=== PATIENT | female | born 1965 | race African-American/Black ===

== ENCOUNTER 2017-02-11 09:23 | Inpatient (IN) | payer MEDICARE ==
--- NOTE | ~2017-02-11 | US77 ---
[facility] A Service of [facility] RADIOLOGY TEXT RESULTS PATIENT: BEATRIZ OCASIO LOCATION: [address] : [birth year] UNIT #: [id number] AGE: [address]: Maximino Bernal MD SEX: F ORDER DR: [id number] [facility] [address] [facility]. [place], [place] [address] [id number] I MR#: [id number] Acc #: [id number] NAME: BEATRIZ OCASIO. : 1965 SEX: F STUDY DATE/TIME: 02/11/2017 18:56 UNIT: [facility] ROOM: [facility] STUDY DESCRIPTION: US Kidney Bilateral Complete Attending Physician: Jovany Carver M.D. Referring Physician: Ivan Whitehead M.D. Ordering Physician: Ed Jackson Foster M.D. Primary Care Physician: Peggy Canela M.D. MEDICAL IMAGING REPORT This report is preliminary unless electronic signature is present EXAM Renal ultrasound bilateral, 02/11/17. HISTORY Acute renal insufficiency beginning today. Abnormal renal function tests. Elevated BUN of 87, elevated creatinine of 8.5. Abnormally low GFR of 5.8 today on admission. FINDINGS The right kidney measures 10.6 cm while the left kidney measures 11.4 cm in longitudinal dimensions. There is no evidence of hydronephrosis or nephrolithiasis. There is a 3.6 cm cyst on the right kidney. No solid mass lesions are identified. There is normal renal cortical echogenicity. The bladder was empty for the exam due to the presence of a De Guzman catheter and therefore poorly visualized. IMPRESSION 1. Right renal cyst. Otherwise, negative renal ultrasound. 2. The bladder was empty for the examination and therefore poorly visualized. Dictated by... Zhou Quinonez M.D. THIS IS AN ELECTRONICALLY VERIFIED REPORT Zhou Quinonez M.D. at 02/14/2017 8:26 AM STACI/ondina TD: 02/11/2017 23:42 JOB #: [id number] MEDICAL IMAGING REPORT [facility] A Service of [facility] RADIOLOGY TEXT RESULTS PATIENT: BEATRIZ OCASIO LOCATION: [address] : [birth year] UNIT #: [id number] AGE: [address]: Maximino Bernal MD SEX: F ORDER DR: Page 1 of 1 COPY
--- NOTE | ~2017-02-11 | CR7 ---
[facility] A Service of [facility] & [facility] RADIOLOGY TEXT RESULTS PATIENT: BEATRIZ OCASIO LOCATION: [address] : [birth year] UNIT #: [id number] AGE: [address]: Maximino Bernal MD SEX: F ORDER DR: [id number] [facility] [address] [facility]. [place], [place] [address] [id number] I MR#: [id number] Acc #: [id number] NAME: BEATRIZ OCASIO : 1965 SEX: F STUDY DATE/TIME: 02/12/2017 23:51 UNIT: [facility] ROOM: [facility] STUDY DESCRIPTION: CR Abdomen Single AP View Attending Physician: Maximino Bernal M.D. Ordering Physician: Maximino Bernal M.D. Primary Care Physician: Peggy Canela M.D. MEDICAL IMAGING REPORT This report is preliminary unless electronic signature is present EXAM Abdomen, 02/12 at 23:51. INDICATION Feeding tube placement. FINDINGS A view of the chest and upper abdomen was obtained. The tip of the feeding tube appears to be in the upper thoracic esophagus. ET tube mid trachea. Remaining tubes and lines are stable. Bilateral infiltrates are again seen. No pneumothorax. IMPRESSION Feeding tube appears to be in the upper thoracic esophagus. It is not in the stomach and should not be used in its current position. STAT * RESULT Dictated by... Sukhi Field Jr., M.D. THIS IS AN ELECTRONICALLY VERIFIED REPORT Sukhi Field Jr., M.D. at 02/13/2017 3:16 AM DONALDO/ondina TD: 02/13/2017 00:23 JOB #: [id number] MEDICAL IMAGING REPORT Page 1 of 1 COPY
--- NOTE | ~2017-02-11 | HP ---
Unit #: [id number] #: [id number] Patient: BEATRIZ OCASIO [id number] [address] [address] [id number] E MR#: [id number] NAME: BEATRIZ OCASIO ROOM: Age: 51 Sex: F Admission Date: 02/11/2017 : 1965 Attending Physician: Emily Hernández M.D. Primary Care Physician: Peggy Canela M.D. HISTORY AND PHYSICAL CHIEF COMPLAINT Shortness of breath. HISTORY OF PRESENT ILLNESS The patient is a 51-year-old female with a history of hypertension, depression, obstructive sleep apnea, and was found unresponsive early this morning. The patient uses a CPAP machine at night. The patient was found to be unresponsive with a vomitus in the CPAP machine by the patient's kids early this morning. The patient was brought to the emergency room. The patient was found to be in respiratory distress and is intubated for the acute respiratory failure. The patient is status post intubation and sedation and no further history is available. No history of fever, chills, nausea, vomiting. PAST MEDICAL HISTORY 1. History of major depression. Recurrent, moderate. 2. Dysthymic disorder. 3. Opioid dependence. 4. Psychological factor affecting physical illness. 5. Obesity. 6. Hypertension. 7. Gastroesophageal reflux disease. 8. Hypothyroidism. 9. Chronic pain with degenerative disk disease. 10. Obstructive sleep apnea. PAST SURGICAL HISTORY 1. History of bypass surgery. 2. Ablation. 3. Five back tumors removed. SOCIAL HISTORY No history of smoking cigarettes, alcohol or illicit drug abuse. FAMILY HISTORY Unavailable. HOME MEDICATIONS 1. The patient is on Cymbalta. 2. Prilosec. 3. Fetzima. 4. Wellbutrin. 5. Tramadol. 6. Zanaflex. Unit #: [id number] #: [id number] Patient: BEATRIZ OCASIO 7. Norvasc. 8. Amitiza. 9. Gabapentin. 10. MS Contin. 11. Tenormin. 12. ProAir. 13. Premarin. 14. Synthroid. REVIEW OF SYSTEMS Unable to obtain. PHYSICAL EXAMINATION GENERAL: The patient is lying on the bed, status post intubation. VITALS: Temperature 99.6, pulse 104, respiratory rate 28, blood pressure 108/88, saturating 94% on 50% vent. HEENT: Head atraumatic, normocephalic. Pupils equal, round and reactive to light and accommodation. Extraocular movements are intact. Status post orotracheal intubation. LUNGS: Coarse breath sounds and diffuse bilateral rhonchi. HEART: Regular rate and rhythm. ABDOMEN: Soft. EXTREMITIES: No cyanosis or clubbing. NEUROLOGIC: Status post intubation and sedation. DIAGNOSTIC STUDIES IMAGING: Chest x-ray shows low lung volumes with prominence of the cardiac silhouette and diffuse bilateral airspace changes. The findings favor the presence of edema over diffuse bilateral pneumonia. No definite effusion or pneumothorax. LABORATORY: Troponin less than 0.05, white blood cell count 4, hemoglobin 11.5, hematocrit 36.8, platelets 343. Lactic acid 1.8, sodium 137, potassium 5.2, glucose 69, BUN 82, creatinine 7.7, calcium 7.6, AST 33, ALT 35, urine drug screen positive for opiates. BNP 228. INR 1. Urinalysis shows 2+ leukocyte esterase, 3+ urine bacteria. Troponin less than 0.05. ABG shows 7.2, pCO2 29.3, pO2 87.8, bicarb 11.6, oxygen saturation 94.7. ASSESSMENT 1. Acute respiratory failure. 2. Acute kidney injury. 3. Hyperkalemia. 4. Sepsis. PLAN Admit the patient to inpatient ICU. Continue with IV fluids per protocol. Antibiotics with Zosyn. Continue with vent management for critical care. Renal consult for hyperkalemia and acute kidney injury. Further recommendations will follow. Dictated by Kenisha Tellez Unit #: [id number] #: [id number] Patient: BEATRIZ OCASIO TD: 02/11/2017 16:16 JOB #: [id number] HISTORY AND PHYSICAL Page 1 of 1 X MANUEL PETIT MD X HISTORY AND PHYSICAL
--- NOTE | ~2017-02-11 | EKG ---
PATIENT: BEATRIZ OCASIO UNIT #: [id number] Ventricular Rate: 110 BPM Atrial Rate: 110 BPM P-R Interval: 168 ms QRS Duration: 80 ms Q-T Interval: 330 ms QTC Calculation(Bezet): 446 ms P [place]: 44 degrees Calculated R [place]: 39 degrees Calculated T [place]: 23 degrees Diagnosis Line: Sinus tachycardia Diagnosis Line: Poor R wave progression questionable lead position Diagnosis Line: or body habitus Diagnosis Line: Borderline ECG Diagnosis Line: When compared with ECG of 11-FEB-2017 09:54, Diagnosis Line: No significant change was found Diagnosis Line: Confirmed by DEVIKA COSTA MD ([id number]) on Diagnosis Line: 02/23/2017 11:04:43 AM INTERPRETING AAKASH SANDOVAL
--- NOTE | ~2017-02-11 | EKG ---
PATIENT: BEATRIZ OCASIO UNIT #: [id number] Ventricular Rate: 80 BPM Atrial Rate: 80 BPM P-R Interval: 160 ms QRS Duration: 80 ms Q-T Interval: 390 ms QTC Calculation(Bezet): 449 ms P [place]: 56 degrees Calculated R [place]: 78 degrees Calculated T [place]: 50 degrees Diagnosis Line: Normal sinus rhythm Diagnosis Line: Normal ECG Diagnosis Line: When compared with ECG of 22-FEB-2017 22:38, Diagnosis Line: No significant change was found Diagnosis Line: Confirmed by VLADIMIR LYNCH MD ([id number]) on 02/24/2017 Diagnosis Line: 8:37:33 PM INTERPRETING MD: CRIS GRAVES
--- NOTE | ~2017-02-11 | CR72 ---
[facility] A Service of [facility] & [facility] RADIOLOGY TEXT RESULTS PATIENT: BEATRIZ OCASIO LOCATION: [place] [address] : [birth year] UNIT #: [id number] AGE: [address]: Rosalia Green MD SEX: F ORDER DR: [id number] [facility] [address] [facility]. [place], [place] [address] [id number] I MR#: [id number] Acc #: [id number] NAME: BEATRIZ OCASIO : 1965 SEX: F STUDY DATE/TIME: 02/18/2017 10:38 UNIT: [facility] ROOM: [facility] STUDY DESCRIPTION: CR Chest Single View Portable Attending Physician: Maximino Bernal M.D. Ordering Physician: Samuel Peterson M.D. Primary Care Physician: Peggy Canela M.D. MEDICAL IMAGING REPORT This report is preliminary unless electronic signature is present EXAM Single view chest INDICATION Chest pain, shortness of air, and wheezing. FINDINGS Single portable AP view of the chest compared to 02/18/2017. The endotracheal tube has been removed. There is an enteric tube, right IJ central line and left IJ central line. Bilateral airspace opacities are similar to the prior study. No pneumothorax. IMPRESSION No change in bilateral airspace opacities. Dictated by... Berto Joseph M.D. THIS IS AN ELECTRONICALLY VERIFIED REPORT Berto Joseph M.D. at 02/21/2017 3:01 PM GARCÍA/juan manuel TD: 02/18/2017 23:35 JOB #: [id number] MEDICAL IMAGING REPORT Page 1 of 1 COPY
--- NOTE | ~2017-02-11 | CT57 ---
[facility] A Service of [facility] RADIOLOGY TEXT RESULTS PATIENT: BEATRIZ OCASIO LOCATION: [facility] 46- : [birth year] UNIT #: [id number] AGE: [address]: Rosalia Green MD SEX: F ORDER DR: [id number] [facility] [address] [facility]. [place], [place] [address] [id number] I MR#: [id number] Acc #: [id number] NAME: BEATRIZ OCASIO. : 1965 SEX: F STUDY DATE/TIME: 02/23/2017 18:36 UNIT: [facility] ROOM: [facility] STUDY DESCRIPTION: CT Chest Wo Cont Attending Physician: Rosalia Green M.D. Ordering Physician: Samuel Peterson M.D. Primary Care Physician: Peggy Canela M.D. MEDICAL IMAGING REPORT This report is preliminary unless electronic signature is present EXAM CT chest without contrast DATE 02/23/2017 HISTORY 51-year-old female, shortness of breath since 02/11/2017. Previously on the ventilator. Respiratory failure, cough, wheezing. Hypertension. COMPARISON PA and lateral chest radiograph 02/23/2017 at 09:14. No CT chest at this institution for comparison. PROCEDURE 5 mm noncontrast axial images through the chest. Sagittal and coronal reformatted images were obtained. This CT exam was performed with one or more of the following radiation dose reduction techniques: Automatic exposure control, adjustment of mA and/or kV according to patient size, and iterative reconstruction. FINDINGS Small right pleural effusion is present, layering to a depth of 2.4 cm. Abnormal interstitial thickening and ground-glass opacities are demonstrated within bilateral upper lobes, right greater than left, and within the right middle lobe. More dense atelectasis or infiltrate is present within the posterior right lower lobe. Mildly prominent prevascular node measuring 1 cm in short axis, nonspecific, favored to represent reactive finding. Right IJ central line extends to the [id number] SVC. No visible pneumothorax. Surgical changes of the stomach. There is an air-fluid collection within the right of midline, upper to mid STS. [facility] A Service of [facility] RADIOLOGY TEXT RESULTS PATIENT: BEATRIZ OCASIO LOCATION: [place] [address]- : [birth year] UNIT #: [id number] AGE: [address]: Rosalia Green MD SEX: F ORDER DR: abdominal wall, incompletely imaged, measuring about 7.1 cm transversely by 2 cm thickness. IMPRESSION 1. Interstitial and alveolar infiltrates are present within both lungs, with more dense consolidative change within the right lower lobe. Findings may represent changes of pneumonia given the appropriate clinical context. There is a small right pleural effusion. 2. There is an incompletely imaged air-fluid collection within the upper abdomen, to the right of midline, measuring about 7.1 x 2 cm. Correlate with clinical exam and known history. If further evaluation is desired, dedicated CT abdomen and pelvis could be performed. 3. Surgical changes of the stomach. Dictated by... Aleshia Vieyra M.D. THIS IS AN ELECTRONICALLY VERIFIED REPORT Aleshia Vieyra M.D. at 02/24/2017 10:03 AM FABIO/sugar TD: 02/23/2017 22:44 JOB #: [id number] MEDICAL IMAGING REPORT Page 1 of 1 COPY
--- NOTE | ~2017-02-11 | CR63 ---
[facility] A Service of [facility] RADIOLOGY TEXT RESULTS PATIENT: BEATRIZ OCASIO LOCATION: [place] [address] : [birth year] UNIT #: [id number] AGE: [address]: Rosalia Green MD SEX: F ORDER DR: [id number] [facility] [address] [facility]. [place], [place] [address] [id number] I MR#: [id number] Acc #: [id number] NAME: BEATRIZ OCASIO. : 1965 SEX: F STUDY DATE/TIME: 02/23/2017 9:14 UNIT: [facility] ROOM: [facility] STUDY DESCRIPTION: CR Chest 2 View Attending Physician: Rosalia Green M.D. Ordering Physician: Samuel Peterson M.D. Primary Care Physician: Peggy Canela M.D. MEDICAL IMAGING REPORT This report is preliminary unless electronic signature is present EXAM Chest, 02/23/2017 HISTORY 51-year-old woman, short of air. History of aspiration pneumonia. Symptoms x 12 days. COMPARISON Most recent portable chest, 02/20/2017 FINDINGS Two-view chest demonstrates borderline cardiac enlargement and mild aortic prominence. There is vascular congestion with cephalization of pulmonary venous distribution. Patient has developed a moderate right pleural effusion with preexisting elevation of the right hemidiaphragm. Right lung infiltrates appear to be improved slightly. Left approach Shiley and right approach central line remain well positioned. IMPRESSION There appears to be some clearing of right lung infiltrate with interim development of significant right pleural effusion. This could be cardiac in origin although the heart size is stable. Clinical correlation recommended. Dictated by... Federico Guajardo M.D. THIS IS AN ELECTRONICALLY VERIFIED REPORT Federico Guajardo M.D. at 02/23/2017 1:03 PM Ehsan TD: 02/23/2017 11:25 JOB #: [id number] [facility] A Service of [facility] RADIOLOGY TEXT RESULTS PATIENT: BEATRIZ OCASIO [id number] : [birth year] UNIT #: [id number] AGE: [address]: Rosalia Green MD SEX: F ORDER DR: MEDICAL IMAGING REPORT Page 1 of 1 COPY
--- NOTE | ~2017-02-11 | CR72 ---
[facility] A Service [facility] RADIOLOGY TEXT RESULTS PATIENT: BEATRIZ OCASIO LOCATION: [address] : [birth year] UNIT #: [id number] AGE: [address]: Maximino Bernal MD SEX: F ORDER DR: [id number] [place] [id number] [place], [place] [address] [id number] I MR#: [id number] Acc #: [id number] NAME: BEATRIZ OCASIO. : 1965 SEX: F STUDY DATE/TIME: 02/16/2017 5:27 UNIT: [facility] ROOM: [facility] STUDY DESCRIPTION: CR Chest Single View Portable Attending Physician: Maximino Bernal M.D. Ordering Physician: Samuel Peterson M.D. Primary Care Physician: Peggy Canela M.D. MEDICAL IMAGING REPORT This report is preliminary unless electronic signature is present EXAM Portable chest, 02/16. COMPARISON 02/15 HISTORY Respiratory distress, respiratory failure, shortness of breath. Ventilator management. COMPARISON An AP view is obtained. FINDINGS The patient remains intubated. ET tube above chelle. Nasoenteric tube is in the stomach. Right-sided IJ line tip terminates in the SVC. Bilateral pulmonary parenchymal infiltrates are present and have not changed significantly. CONCLUSION No interim change. Dictated by... Marcio Gale M.D. THIS IS AN ELECTRONICALLY VERIFIED REPORT Marcio Gale M.D. at 02/17/2017 3:21 PM BARB/zoë TD: 02/16/2017 10:23 JOB #: [id number] [facility] A [facility] RADIOLOGY TEXT RESULTS PATIENT: BEATRIZ OCASIO LOCATION: [address] : [birth year] UNIT #: [id number] AGE: [address]: Maximino Bernal MD SEX: F ORDER DR: MEDICAL IMAGING REPORT Page 1 of 1 COPY
--- NOTE | ~2017-02-11 | CR72 ---
[facility] A Service of [facility] RADIOLOGY TEXT RESULTS PATIENT: BEATRIZ OCASIO LOCATION: [place] : [birth year] UNIT #: [id number] AGE: [address]: Emily Hernández MD SEX: F ORDER DR: [id number] [facility] [address] [facility]. [place], [place] [address] [id number] E MR#: [id number] Acc #: [id number] NAME: BEATRIZ OCASIO : 1965 SEX: F STUDY DATE/TIME: 02/11/2017 12:39 UNIT: [place] ROOM: STUDY DESCRIPTION: CR Chest Single View Portable Attending Physician: Emily Hernández M.D. Ordering Physician: Ed Jackson Foster M.D. Primary Care Physician: Peggy Canela M.D. MEDICAL IMAGING REPORT This report is preliminary unless electronic signature is present EXAM Chest, portable, 02/11/2017, 1239 hours. CLINICAL HISTORY Respiratory distress today, new intubation. COMPARISON 02/11/2017, 1201 hours. FINDINGS Single, portable, upright view demonstrates a new endotracheal tube with tip terminating 3.5 cm above the chelle. Right IJ catheter tip remains in the mid SVC. Bilateral airspace changes persist. There is no pneumothorax. IMPRESSION New endotracheal tube tip terminates 3.5 cm above the chelle. Right IJ catheter tip in the mid SVC. Stable bilateral airspace changes. No pneumothorax. Dictated by... Beatriz Cook M.D. THIS IS AN ELECTRONICALLY VERIFIED REPORT Beatriz Cook M.D. at 02/11/2017 4:01 PM MYESHA/zoë TD: 02/11/2017 15:23 JOB #: [id number] MEDICAL IMAGING REPORT [facility] A Service [facility] RADIOLOGY TEXT RESULTS PATIENT: BEATRIZ OCASIO LOCATION: [place] : [birth year] UNIT #: [id number] AGE: [address]: Emily Hernández MD SEX: F ORDER DR: Page 1 of 1 COPY
--- NOTE | ~2017-02-11 | CR7 ---
[facility] A Service of [facility] & [facility] RADIOLOGY TEXT RESULTS PATIENT: BEATRIZ OCASIO LOCATION: [place] [address] : [birth year] UNIT #: [id number] AGE: [address]: Maximino Bernal MD SEX: F ORDER DR: [id number] [facility] [address] [facility]. [place], [place] [address] [id number] I MR#: [id number] Acc #: [id number] NAME: BEATRIZ OCASIO. : 1965 SEX: F STUDY DATE/TIME: 02/13/2017 7:51 UNIT: [facility] ROOM: [facility] STUDY DESCRIPTION: CR Abdomen Single AP View Attending Physician: Maximino Bernal M.D. Ordering Physician: Maximino Bernal M.D. Primary Care Physician: Peggy Caneal M.D. MEDICAL IMAGING REPORT This report is preliminary unless electronic signature is present EXAM AP view of the abdomen COMPARISON February 12, 2017. INDICATIONS 51-year-old female, tube placement today. FINDINGS/IMPRESSION Internal jugular catheter tip again noted to terminate near the cavoatrial junction, possibly in the high right atrium. Feeding tube has been advanced with the tip below the diaphragm, likely within the gastric body. There appears to be slight increased gaseous distension of small bowel and colon in the visualized abdomen, nonspecific finding. As compared to yesterday, lung opacities may be slightly increased in the left mid-lung and lung base, possibly representing edema or pneumonia. Dictated by... Reyes Dykes M.D. THIS IS AN ELECTRONICALLY VERIFIED REPORT Reyes Dykes M.D. at 02/21/2017 7:30 AM BLM/pcl TD: 02/13/2017 12:20 JOB #: [id number] MEDICAL IMAGING REPORT Page 1 of 1 COPY
--- NOTE | ~2017-02-11 | EKG ---
PATIENT: BEATRIZ OCASIO UNIT #: [id number] Ventricular Rate: 106 BPM Atrial Rate: 106 BPM P-R Interval: 186 ms QRS Duration: 78 ms Q-T Interval: 312 ms QTC Calculation(Bezet): 414 ms P [place]: 42 degrees Calculated R [place]: 69 degrees Calculated T [place]: 42 degrees Diagnosis Line: Sinus tachycardia Diagnosis Line: Nonspecific ST-T wave changes noted Diagnosis Line: No previous ECGs available Diagnosis Line: Confirmed by SAJAN LYNNE MD ([id number]) on Diagnosis Line: 02/11/2017 4:23:27 PM INTERPRETING MD: BRIAN
--- NOTE | ~2017-02-11 | CR72 ---
[facility] A Service of [facility] & [facility] RADIOLOGY TEXT RESULTS PATIENT: BEATRIZ OCASIO LOCATION: [address] : [birth year] UNIT #: [id number] AGE: [address]: Maximino Bernal MD SEX: F ORDER DR: [id number] [facility] [address] [facility]. [place], [place] [address] [id number] I MR#: [id number] Acc #: [id number] NAME: BEATRIZ OCASIO. : 1965 SEX: F STUDY DATE/TIME: 02/12/2017 18:08 UNIT: [facility] ROOM: [facility] STUDY DESCRIPTION: CR Chest Single View Portable Attending Physician: Maximino Bernal M.D. Ordering Physician: Eric Davis M.D. Primary Care Physician: Peggy Canela M.D. MEDICAL IMAGING REPORT This report is preliminary unless electronic signature is present EXAM Portable chest HISTORY Shiley catheter placement today. Shortness of air. FINDINGS Compared to earlier today a left IJ line has been placed with its tip in the superior margin of the right atrium 1 cm beyond the junction of the SVC and right atrium. Feeding tube has been advanced slightly with its tip now at the level of the gastric fundus and the tube is curled in the proximal stomach extending approximately 20 cm beyond the EG junction. Fairly extensive bilateral pulmonary infiltrates, remaining greater in the right mid and lower chest are stable. Small right pleural effusion. No pneumothorax. IMPRESSION 1. No pneumothorax. 2. Left IJ line has been placed since earlier today with its tip in the right atrium 1 cm beyond the junction of the SVC and right atrium. 3. Bilateral pulmonary infiltrates are stable, greater on the right. 4. No pneumothorax. Dictated by... Brooks Nguyen M.D. THIS IS AN ELECTRONICALLY VERIFIED REPORT Brooks Nguyen M.D. at 02/12/2017 10:53 PM DFL/regina TD: 02/12/2017 22:30 JOB #: [id number] [facility] A Service of [facility] & [facility] RADIOLOGY TEXT RESULTS PATIENT: BEATRIZ OCASIO LOCATION: [address] : [birth year] UNIT #: [id number] AGE: [address]: Maximino Bernal MD SEX: F ORDER DR: MEDICAL IMAGING REPORT Page 1 of 1 COPY
--- NOTE | ~2017-02-11 | FU ---
[facility] Nutrition Therapy DATE: 02/22/17 Patient: BEATRIZ OCASIO Physician: MATT Address: [address] [place] [address] Room/Bed: [address] [place] [address], Zip: [place] [address] Admit Date: 02/11/17 Date of : [birth year] Height: 5 6 Weight: 274 124.5 NUTRITION MONITORING/FOLLOW-UP: Reason: nutrition follow-up Anthropometrics: ht: 5'6" wt: 274# (124 kg) (bed scale 02/22) BMI 44 Labs: Glu 125, Creat 1.9, GFR 35.5 Meds: heparin, dulera, synthroid, NaCl, pepcid I&O's: 1939/2149 Skin: previously noted Estimated Nutrition Needs: 3100-1313 kcal (11-14 kcal/kg) 106-130 g protein (1.8-2.2) Assessment: Chart reviewed, events noted. Pt was previously receiving enteral nutrition support of Nepro at goal of 35 mL/hr + Prostat TID. The pt has since been advanced to a regular diet. RD internal medicine specialist spoke to pt at bedside. Pt reports wanting to eat and wanting something cold to eat like a popsicle. Her appetite is fair. However, she is receiving breathing treatments right before her meals arrive, therefore making it very hard for her to eat and tolerate the food. She refused her breakfast tray this morning. RD internal medicine specialist offered to order ensure and magic cup for her, since she is not eating well, and pt agreed. Please see recommendations, RD to follow. Dx:1) Obesity stage III r/t poor lifestyle choices AEB BMI 44 -ACTIVE 2) Inadequate oral intake r/t recent extubation, respiratory status AEB NPO status -RESOLVED/ACTIVE 3) Inadequate oral intake r/t respiratory status, poor intake AEB pt report Intervention: 1. regular diet + 6 small meals 2. ensure supplements 3. DATA MINING ANALYST Monitoring, Evaluation and Goals: 1. Enteral nutrition; decrease to goal -NOT ACTIVE/RESOLVED 2. Weight; promote gradual weight loss -UNMEASURED, INNACCURATE WEIGHT/ IN PROGRESS 3. GI; promote regular GI function - IN PROGRESS 4. Improve labs; BUN, creat, K+ -creat improved [facility] Nutrition Therapy DATE: 02/22/17 Patient: BEATRIZ OCASIO Physician: MATT Address: [address] [place] [address] Room/Bed: [address] [place] [address], Zip: [place] [address] Admit Date: 02/11/17 Date of : [birth year] Height: 5 6 Weight: 274 124.5 New Goals: 1. PO intake; consume 50% of all meals and supplements w/no c/o n/v/d Recommendations: 1. Ensure vanilla BID + Magic Cup BID 2. Change diet to healthy heart + 6 small meals. 3. Would appreciate staff encouragement and help with meals/supplements and intake, ensuring pt receives adequate nutrition. 4. If po intake continues to be >50% of meals and supplements, re-initiate enteral nutrition support with Nepro @ 35 mL/hr + [address] will f/u per protocol as pt is at moderate nutritional risk. Status: Respectfully, DOMENIC AMOR, senior insight manager international Young Albarado MS, RD, LD Food and Nutritional Services [facility] cc: client file
--- NOTE | ~2017-02-11 | US84 ---
[id number] [facility] [address] [place], [place] [address] [id number] I MR#: [id number] Acc #: [id number] NAME: BEATRIZ OCASIO : 1965 SEX: F STUDY DATE/TIME: 02/21/2017 15:54 UNIT: [facility] ROOM: 467 STUDY DESCRIPTION: US LE Veins Complete [place] Stdy Attending Physician: Rosalia Green M.D. Ordering Physician: Ed Doctor [id number] [facility] Primary Care Physician: Peggy Canela M.D. MEDICAL IMAGING REPORT This report is preliminary unless electronic signature is present EXAM Bilateral lower extremity venous duplex Doppler INDICATION Bilateral lower extremity swelling and pain for 2 months. Wheezing for 1 week. COMPARISON None available. FINDINGS The common femoral veins to the popliteal veins are widely patent. There is normal compressibility with spontaneous and phasic waveforms. The right posterior tibial vein is incompletely compressible consistent with a calf vein thrombus. The anterior tibial vein and peroneal veins are patent. No left calf vein thrombus. IMPRESSION 1. Deep vein thrombus in the right posterior tibial vein. 2. No deep vein thrombus in the left lower extremity. These findings were called to the patient's nurse at 16:45 on 02/21/2017. Dictated by... Berto Joseph M.D. THIS IS AN ELECTRONICALLY VERIFIED REPORT Berto Joseph M.D. at 02/22/2017 10:48 AM GARCÍA/evens TD: 02/22/2017 06:45 JOB #: [id number] MEDICAL IMAGING REPORT Page 1 of 1 COPY
--- NOTE | ~2017-02-11 | CR72 ---
[facility] A Service of [facility] RADIOLOGY TEXT RESULTS PATIENT: YINA OCASIO LOCATION: [facility] : [birth year] UNIT #: [id number] AGE: [address]: Emily Hernández MD SEX: F ORDER DR: [id number] [place] [id number] [facility]. [place], [place] [address] [id number] E MR#: [id number] Acc #: [id number] NAME: YINA OCASIO : 1965 SEX: F STUDY DATE/TIME: 02/11/2017 UNIT: [facility] ROOM: STUDY DESCRIPTION: CR Chest Single View Portable Attending Physician: Emily Hernández M.D. Ordering Physician: Emily Hernández M.D. Primary Care Physician: Peggy Canela M.D. MEDICAL IMAGING REPORT This report is preliminary unless electronic signature is present EXAM Chest portable 02/11/2017 1201 hours HISTORY Central line placement today. COMPARISON 02/11/2017 0959 hours FINDINGS Portable upright chest demonstrates a new right internal jugular catheter with tip in the mid SVC. There is no pneumothorax. Low lung volumes with diffuse bilateral airspace changes again seen. IMPRESSION 1. New right IJ catheter tip terminates in the mid SVC. There is no pneumothorax. 2. Persistent low lung volumes with diffuse bilateral airspace changes similar to earlier today at 0959 hours. Dictated by... Yina Cook M.D. THIS IS AN ELECTRONICALLY VERIFIED REPORT Yina Cook M.D. at 02/11/2017 4:01 PM Jennifer TD: 02/11/2017 14:26 JOB #: [id number] MEDICAL IMAGING REPORT [facility] A Service of [facility] RADIOLOGY TEXT RESULTS PATIENT: YINA OCASIO LOCATION: [facility] : [birth year] UNIT #: [id number] AGE: [address]: Emily Hernández MD SEX: F ORDER DR: Page 1 of 1 COPY
--- NOTE | ~2017-02-11 | CR72 ---
[facility] A Service of [facility] RADIOLOGY TEXT RESULTS PATIENT: BEATRIZ OCASIO LOCATION: [place] [address] : [birth year] UNIT #: [id number] AGE: [address]: Maximino Bernal MD SEX: F ORDER DR: [id number] [facility] [address] [place] [address] [facility]. [place], [place] [address] [id number] I MR#: [id number] Acc #: [id number] NAME: BEATRIZ OCASIO. : 1965 SEX: F STUDY DATE/TIME: 02/15/2017 6:02 UNIT: [facility] ROOM: [facility] STUDY DESCRIPTION: CR Chest Single View Portable Attending Physician: Maximino Bernal M.D. Ordering Physician: Charlie Mari M.D. Primary Care Physician: Peggy Canela M.D. MEDICAL IMAGING REPORT This report is preliminary unless electronic signature is present EXAM Portable chest, 1 view, 02/15/2017. COMPARISON 02/14/2017 CLINICAL HISTORY Respiratory failure for 4 days. FINDINGS ET tube remains in place along with a left IJ dialysis type catheter, NG tube, and right IJ central line. Low lung volumes with right greater than left coarse infiltrates redemonstrated, no pneumothorax or apparent effusion, no new abnormality or interval improvement. Dictated by... Cristiano Solo M.D. THIS IS AN ELECTRONICALLY VERIFIED REPORT Cristiano Solo M.D. at 02/15/2017 3:57 PM TEV/tmw TD: 02/15/2017 13:44 JOB #: [id number] MEDICAL IMAGING REPORT Page 1 of 1 COPY
--- NOTE | ~2017-02-11 | CO ---
Unit #: [id number] #: [id number] Patient: BEATRIZ OCASIO [id number] [address] [place], [place] [address] [id number] I MR#: [id number] NAME: BEATRIZ OCASIO ROOM: [facility] Age: 51 Sex: F Admission Date: 02/11/2017 : 1965 Attending Physician: Maximino Bernla M.D. Primary Care Physician: Peggy Canela M.D. Consultation Date: 02/12/2017 CONSULTATION REPORT HISTORY OF PRESENT ILLNESS Ms. Ocasio is a 51-year-old black female, who presented with small bowel obstruction and possible sepsis. She suffered acute respiratory failure and acute renal insufficiency. She has a history of rheumatoid arthritis and gastric bypass along with sleep apnea. She was intubated and I was asked to see her for mechanical ventilation. PAST MEDICAL HISTORY Also significant for uterine fibroids and history of hypertension. REVIEW OF SYSTEMS Unable to be obtained. She was on a ventilator and heavily sedated. FAMILY HISTORY Unknown. SOCIAL HISTORY No tobacco, alcohol, or drugs. ALLERGIES She has no listed allergies. CURRENT MEDICATIONS Include Cymbalta, Prilosec, Fetzima, Wellbutrin, tramadol, MS Contin, Tenormin, ProAir, Premarin, Synthroid, Zanaflex, Norvasc, Amitiza, gabapentin. PHYSICAL EXAMINATION GENERAL: She is morbidly obese black female, who is heavily sedated on a ventilator and orally intubated. HEENT: Pupils are round and reactive to light. Sclerae nonicteric. Nasal passages are patent. She is orally intubated and oropharynx could be examined. NECK: No gross supraclavicular or cervical adenopathy. CHEST: There is normal AP diameter of chest, but quite bit of truncal obesity and diminished breath sounds bilaterally with scattered rhonchi. HEART: Systolic murmurs present without S3, rubs, or gallops. ABDOMEN: Slightly distended, but generally soft and nontender. There is no appreciable enlargement of the liver or spleen. EXTREMITIES: Showed no clubbing or cyanosis, but there was some degree of edema. JOINTS: Not inflamed. SKIN: Free of rashes. NEUROLOGIC: She showed no focal signs, but was sedated. Unit #: [id number] #: [id number] Patient: BEATRIZ OCASIO DIAGNOSTIC STUDIES IMAGING STUDIES: Chest x-ray by report shows possible small pleural effusion, otherwise there were stable opacities. LABORATORY RESULTS: White count was 15.1, hematocrit of 33, platelets of 288. Sodium 135, potassium 5.4, chloride 99, CO2 of 20, glucose 247, BUN of 103, creatinine 7.7, and calcium 6.0. Arterial blood gas showed a pH of 7.34, PCO2 of 37, PO2 of 77 on assist control of 18, 500, PEEP of 8 and 50%. Dialysis is planned for this patient. IMPRESSION Acute renal and respiratory failure secondary to possible small bowel obstruction. We will plan on fluid resuscitation, pressors as needed, empiric antibiotics and ICU observation. Thank you very much for allowing us to participate in her care. Dictated by... Kenisha Mortensen/leelee TD: 02/13/2017 07:09 JOB #: [id number] CONSULTATION REPORT Page 1 of 1 X Lev Pinto MD X CONSULTATION REPORT
--- NOTE | ~2017-02-11 | DS ---
Unit #: [id number] #: [id number] Patient: BEATRIZ OCASIO [id number] [address] [address] [id number] I MR#: [id number] NAME: BEATRIZ OCASIO ROOM: 46 Age: 51 Sex: F Admission Date: 02/11/2017 : 1965 Discharge Date: 02/25/2017 Attending Physician: Rosalia Green M.D. Primary Care Physician: Peggy Canela M.D. DISCHARGE SUMMARY DISCHARGE DIAGNOSES 1. Acute hypercapnic hypoxic respiratory failure. 2. Aspiration pneumonia. 3. Small right pleural effusion, probable parapneumonic effusion. 4. Acute DVT in the right posterior tibial vein. 5. Acute diarrhea. 6. Acute kidney injury. 7. Chronic kidney disease stage 3. 8. Probable obstructive sleep apnea. 9. E-coli urinary tract infection. 10. Sinus tachycardia, likely from holding her Tenormin. 11. Toxic metabolic encephalopathy, present on admission. 12. Sepsis from aspiration pneumonia, resolved. 13. Hypokalemia. 14. Chronic obstructive pulmonary disease with exacerbation 15. Hypomagnesemia. 16. Septic shock from pneumonia, resolved. 17. ATN. The patient received hemodialysis. Currently off dialysis. 18. Morbid obesity. 19. Hypocalcemia. 20. Mild protein malnutrition. 21. Gastroesophageal reflux disease. 22. Hypothyroidism. 23. Chronic pain with chronic opiate dependence. 24. Dysrhythmic disorder. 25. Major depression, recurrent, moderate. CONSULTANTS Dr. Jerman Cyr. Dr. Peterson. PROCEDURE PERFORMED The patient was intubated. Currently extubated. DIAGNOSTIC DATA LABORATORY: Sodium 143, potassium 3.5, creatinine 1.7, INR 1.1, white blood cell count 15.9, hemoglobin 8.6, platelets 736. Blood cultures negative. Sputum cultures growing multiple Gram negative and Gram positive. Urine culture growing e-coli on 02/11/2017. IMAGING: CT of the chest without contrast shows interstitial and alveolar disease, dense consolidation right lower lobe. Ultrasound of the extremities positive for right posterior tibial vein Unit #: [id number] #: [id number] Patient: BEATRIZ OCASIO DVT. ALLERGIES No known drug allergies. DISCHARGE MEDICATIONS 1. Duo-Nebs 3 ml inhalation q.i.d. 2. Tylenol 650 mg q.6 h. p.r.n. moderate pain. 3. Magnesium oxide 400 mg p.o. t.i.d. 4. Coumadin 5 mg daily. 5. Cymbalta 30 mg daily. 6. Dulera 2 puffs inhalation b.i.d. 7. Tenormin 100 mg p.o. daily. 8. Percocet 5 mg q.6 h. p.r.n. pain. 9. Prilosec 40 mg daily. 10. Potassium 40 mEq daily. 11. Nephrocaps 1 capsule daily. 12. Synthroid 88 mcg daily. 13. Augmentin 875 mg p.o. b.i.d. for 3 more days. 14. Lovenox 120 mg subcutaneous b.i.d. Stop if INR is greater than or equal to 2.0. HOSPITAL COURSE The patient is a 51-year-old admitted because of shortness of breath. 1. Acute hypercapnic, hypoxic respiratory failure from pneumonia and chronic obstructive pulmonary disease. Currently she is on 2 liters continuous home oxygen. 2. Aspiration pneumonia. The patient was started on broad spectrum antibiotics. Currently she does have dense consolidation in the right lower lobe. Continue with Augmentin for three more days. Dr. Peterson was closely following. 3. Change in mental status secondary to toxic metabolic encephalopathy, resolved. 4. Septic shock with sepsis, secondary to pneumonia. The patient received IV fluids. The patient is not on pressors. Currently sepsis and sepsis shock resolved. 5. E-coli urinary tract infection. The patient received antibiotics. Currently stable. 6. Acute kidney injury with ATN and chronic kidney disease stage 3. Present on admission. The patient received hemodialysis. Currently off hemodialysis. She does not need hemodialysis any more as per nephrology. 7. Anemia on chronic iron deficiency. No active bleeding. Monitor. 8. Electrolyte imbalance with hypokalemia, hypomagnesemia. Replaced. Continue with p.o. at rehab. 9. Morbid obesity secondary to calories. Continue with diet control. 10. Acute right tibial vein DVT. Discussed with nephrology. He is okay for me to start full dose on Lovenox. She did receive heparin and Coumadin during the hospitalization course. Stop Lovenox if INR is greater than or equal to 2.0. 11. The patient needs PT/INR daily times two, starting from 02/28/2017. The patient will be discharged to rehab. Left message for her friend, Ms. Kailee Ingram. Discussed with case making machine operator. She has a bed at rehab today. The patient will be discharged to rehab today. Unit #: [id number] #: [id number] Patient: BEATRIZ OCASIO Discharge time taken was 41 minutes. Dictated by... Kenisha Moser TD: 02/25/2017 15:43 JOB #: [id number] CC: Peggy Canela M.D. DISCHARGE SUMMARY Page 1 of 1 X Rosalia Green MD X DISCHARGE SUMMARY
--- NOTE | ~2017-02-11 | CT71 ---
[facility] A Service of [facility] RADIOLOGY TEXT RESULTS PATIENT: BEATRIZ OCASIO LOCATION: [facility] : [birth year] UNIT #: [id number] AGE: [address]: Maximino Bernal MD SEX: F ORDER DR: [id number] [place], [place] [address] [id number] E MR#: [id number] Acc #: [id number] NAME: BEATRIZ OCASIO. : 1965 SEX: F STUDY DATE/TIME: 02/11/2017 13:10 UNIT: [facility] ROOM: STUDY DESCRIPTION: CT Head Wo Contrast Attending Physician: Emily Hernández M.D. Ordering Physician: Emily Hernández M.D. Primary Care Physician: Peggy Canela M.D. MEDICAL IMAGING REPORT This report is preliminary unless electronic signature is present EXAM CT brain without contrast media 02/11 HISTORY Confusion and unresponsive, lethargic today. TECHNIQUE Axial imaging of the brain was performed without contrast media. This CT exam was performed with one or more of the following radiation dose reduction techniques: automatic exposure control, adjustment of mA and/or kV according to patient size, and iterative reconstruction. FINDINGS Ventricular size and configuration is normal. No intra- or extraaxial mass lesions, fluid collections or mass effect are seen. No focal areas of low attenuation or evidence of acute hemorrhage. CONCLUSION 1. Normal noncontrast CT of the brain. Dictated by... Marcio Gale M.D. THIS IS AN ELECTRONICALLY VERIFIED REPORT Marcio Gale M.D. at 02/14/2017 5:11 PM BARB/fortino TD: 02/11/2017 16:14 JOB #: [id number] [facility] A Service [facility] RADIOLOGY TEXT RESULTS PATIENT: BEATRIZ OCASIO LOCATION: [facility] : [birth year] UNIT #: [id number] AGE: [address]: Maximino Bernal MD SEX: F ORDER DR: MEDICAL IMAGING REPORT Page 1 of 1 COPY
--- NOTE | ~2017-02-11 | CR72 ---
[facility] A Service of [facility] RADIOLOGY TEXT RESULTS PATIENT: BEATRIZ OCASIO LOCATION: [place] [address] : [birth year] UNIT #: [id number] AGE: [address]: Maximino Bernal MD SEX: F ORDER DR: [id number] [facility] [address] [facility] [place], [place] [address] [id number] MR#: [id number] Acc #: [id number] NAME: BEATRIZ OCASIO : 1965 SEX: F STUDY DATE/TIME: 02/13/2017 UNIT: [facility] ROOM: [facility] STUDY DESCRIPTION: CR Chest Single View Portable Attending Physician: Maximino Bernal M.D. Ordering Physician: Lev Pinto M.D. Primary Care Physician: Peggy Canela M.D. MEDICAL IMAGING REPORT This report is preliminary unless electronic signature is present EXAM Portable chest 02/13 at 04:24 INDICATIONS Shortness of air. Endotracheal tube placement. TECHNIQUE AP portable chest is compared with 02/12/2017. FINDINGS Tubes and lines are unchanged and well positioned with the exception of interval removal of the feeding tube. Dense infiltrate right qru-hz-ypeva lung is stable. Mild infiltrate in the left ugk-db-ggmaa lung are stable to minimally improved. No pneumothorax. Dictated by... Sukhi Field Jr., M.D. THIS IS AN ELECTRONICALLY VERIFIED REPORT Sukhi Field Jr., M.D. at 02/13/2017 9:26 PM DONALDO/fortino TD: 02/13/2017 11:34 JOB #: [id number] MEDICAL IMAGING REPORT Page 1 of 1 COPY
--- NOTE | ~2017-02-11 | FU ---
[facility] Nutrition Therapy DATE: 02/15/17 Patient: BEATRIZ OCASIO Physician: MATT Address: [address] [place] [address] RD Room/Bed: [address], Zip: [place] [address] Admit Date: 02/11/17 Date of : [birth year] Height: 5 6 Weight: 286 130 NUTRITION MONITORING/FOLLOW-UP: Reason: Nutrition follow up Anthropometrics: Ht: 5'6" Adm wt: 127.3 kg BMI: 45.2 IBW: 59.1 kg Wt 02/15: 130 kg Labs: Cl- 98 Gluc 120 BUN 32 Creat 2.6 Ca++ 7.4 GFR 24.1 Meds: NaCl, Phoslo, nephrocaps, versed I&O's: 6515/1142, last BM 02/14 Skin: Bruising BLE Edema: Generalized- body/ BLE/ hips/ abdomen/ trunk Estimated Nutrition Needs: 5676-9487 kcals (11-14 kcals/kg ABW) 106-130 grams protein (1.8-2.2 grams/kg IBW) Assessment: Chart reviewed, events noted. Pt remains intubated in the ICU, continues to receive HD. Pt is receiving enteral nutrition with Nepro @ 45 mL/hr + Prostat TID. RN reports that the pt is tolerating this regimen with minimal issues. Now that the pt is receiving Prostat, she is receiving an excess amount of kcals (2244 kcals total). Please refer to RD recommendations below. RD informed RN of these recommendations. See changes to nutrition diagnoses. Dx: Inadequate protein-energy intake RT current Dx, ventilator dependence AEB NPO status-RESOLVED 2) Obesity class III RT poor lifestyle habits AEB BMI 45.2- ACTIVE New Dx: Excessive energy intake RT enteral nutrition regimen AEB enteral nutrition regimen providing 2244 kcals, which exceeds the pt's energy needs. Intervention: 1. Decrease Nepro to 35 mL/hr 2. Continue Prostat TID Monitoring, Evaluation and Goals: 1. Enteral nutrition; provide >80% estiamted nutrient needs at goal- MET/ IN PROGRESS [facility] Nutrition Therapy DATE: 02/15/17 Patient: BEATRIZ OCASIO Physician: MATT Address: [address] [place] [address] Room/Bed: [address], Zip: [place] [address] Admit Date: 02/11/17 Date of : [birth year] Height: 5 6 Weight: 286 130 2. Weights; promote gradual weight loss- IN PROGRESS 3. Labs; Lytes-IMPROVED/ IN PROGRESS 4. GI; promote regular GI function- IN PROGRESS NEW GOALS (IN ADDITION TO ABOVE): 1. Enteral nutrition; decrease to recommended goal and provide >80% goal volume x 24 hrs 2. Improve labs; BUN, creat, monitor electrolytes Recommendations: 1. Decrease Nepro to 35 mL/hr and continue 30 mL Prostat TID, as the current rate is exceeding the pt's calorie needs. Nepro @ 35 mL/hr + 30 mL Prostat TID will provide: 1812 kcals/ 113 grams protein/ 613 mL free H20 *Free H20 flushes per MD 2. If the pt's renal function improves and electrolytes continue to be WNL, considering changing from Nepro to Jevity 1.5 to prevent dehydration. If ordered by MD, start Jevity 1.5 @ 40 mL/hr + 30 mL Prostat TID to provide: 1740 kcals/ 106 grams protein/ 730 mL free H20 3. If the pt is extubated, recommend ENVIRONMENTAL COMPLIANCE SPECIALIST evaluation. Advance diet per ENVIRONMENTAL COMPLIANCE SPECIALIST recommendations + HH diet restriction. Renal diet may be indicated if the pt remains on HD. Status: Pt is at moderate nutritional risk. RD will continue to follow hospital course. Respectfully, ZACHERY PATEL RD, LD Food and Nutritional Services [facility] cc: client file
--- NOTE | ~2017-02-11 | CR72 ---
[facility] A Service of [facility] RADIOLOGY TEXT RESULTS PATIENT: BEATRIZ OCASIO LOCATION: [place] [address] : [birth year] UNIT #: [id number] AGE: [address]: Maximino Bernal MD SEX: F ORDER DR: [id number] [facility] [address]. [place], [place] [address] [id number] I MR#: [id number] Acc #: [id number] NAME: BEATRIZ OCASIO. : 1965 SEX: F STUDY DATE/TIME: 02/20/2017 4:44 UNIT: [facility] ROOM: [facility] STUDY DESCRIPTION: CR Chest Single View Portable Attending Physician: Maximino Bernal M.D. Ordering Physician: Samuel Peterson M.D. Primary Care Physician: Peggy Canela M.D. MEDICAL IMAGING REPORT This report is preliminary unless electronic signature is present EXAM Portable chest INDICATION Respiratory failure. Followup. PROCEDURE Frontal view chest COMPARISON 02/19/2017 FINDINGS Heart size unchanged. Patchy opacities both lungs right greater than left appear unchanged. No new dense consolidation or pneumothorax. IMPRESSION Stable. Dictated by... Dejan Gunter M.D. THIS IS AN ELECTRONICALLY VERIFIED REPORT Dejan Gunter M.D. at 02/20/2017 10:24 PM Michelle TD: 02/20/2017 09:05 JOB #: [id number] MEDICAL IMAGING REPORT Page 1 of 1 COPY
--- NOTE | ~2017-02-11 | CR72 ---
[facility] A Service of [facility] RADIOLOGY TEXT RESULTS PATIENT: BEATRIZ OCASIO LOCATION: [place] [address] : [birth year] UNIT #: [id number] AGE: [address]: Maximino Bernal MD SEX: F ORDER DR: [id number] [facility] [address] [facility]. [place], [place] [address] [id number] I MR#: [id number] Acc #: [id number] NAME: BEATRIZ OCASIO. : 1965 SEX: F STUDY DATE/TIME: 02/14/2017 5:22 UNIT: [facility] ROOM: [facility] STUDY DESCRIPTION: CR Chest Single View Portable Attending Physician: Maximino Bernal M.D. Ordering Physician: Lev Pinto M.D. Primary Care Physician: Peggy Canela M.D. MEDICAL IMAGING REPORT This report is preliminary unless electronic signature is present EXAM AP portable chest DATE: 02/14/2017 at 05:22 HISTORY Respiratory failure, shortness breath with endotracheal tube placement. Symptoms began 4 days ago. Additional history of hypertension. COMPARISON AP portable chest 02/13/2017. FINDINGS Significant interval worsening in dense airspace disease changes within both lungs, most significant in the right upper lobe and left twd-pn-pxqly lung zones. ET tube, Dobbhoff tube, left IJ central line and right IJ central line each appear stable in position. No pneumothorax is seen. IMPRESSION 1. Interval worsening of dense airspace disease changes particularly in the left mdc-oi-fryyp lung zone and right upper lobe compared to 02/13/2017. Correlate clinically for worsening pneumonia. 2. Supporting lines tubes appear stable. No pneumothorax is seen. Dictated by... Aleshia Vieyra M.D. THIS IS AN ELECTRONICALLY VERIFIED REPORT Aleshia Vieyra M.D. at 02/15/2017 2:00 PM [facility]/nilda [facility] A Service of [facility] RADIOLOGY TEXT RESULTS PATIENT: BEATRIZ OCASIO LOCATION: [address] : [birth year] UNIT #: [id number] AGE: [address]: Maximino Bernal MD SEX: F ORDER DR: TD: 02/14/2017 11:12 JOB #: [id number] MEDICAL IMAGING REPORT Page 1 of 1 COPY
--- NOTE | ~2017-02-11 | CR72 ---
[facility] A Service of [facility] & [facility] RADIOLOGY TEXT RESULTS PATIENT: BEATRIZ OCASIO LOCATION: [place] [address] : [birth year] UNIT #: [id number] AGE: [address]: Maximino Bernal MD SEX: F ORDER DR: [id number] [facility] [address] [place], [place] [address] [id number] I MR#: [id number] Acc #: [id number] NAME: BEATRIZ OCASIO. : 1965 SEX: F STUDY DATE/TIME: 02/19/2017 5:28 UNIT: [facility] ROOM: [facility] STUDY DESCRIPTION: CR Chest Single View Portable Attending Physician: Maximino Bernal M.D. Ordering Physician: Maximino Bernal M.D. Primary Care Physician: Peggy Canela M.D. MEDICAL IMAGING REPORT This report is preliminary unless electronic signature is present EXAM Portable chest INDICATION Respiratory failure. Followup. PROCEDURE Frontal view chest COMPARISON 02/18/2017 FINDINGS Heart size unchanged. Persistent interstitial and alveolar opacities, right greater than left. No new dense consolidation. IMPRESSION Stable. Dictated by... Dejan uGnter M.D. THIS IS AN ELECTRONICALLY VERIFIED REPORT Dejan Gunter M.D. at 02/19/2017 10:09 PM Michelle TD: 02/19/2017 11:40 JOB #: [id number] MEDICAL IMAGING REPORT Page 1 of 1 COPY
--- NOTE | ~2017-02-11 | CO ---
Unit #: [id number] #: [id number] Patient: BEATRIZ OCASIO [id number] [place], [place] [address] [id number] I MR#: [id number] NAME: BEATRIZ OCASIO ROOM: [facility] Age: 51 Sex: F Admission Date: 02/11/2017 : 1965 Attending Physician: Maximino Bernal M.D. Primary Care Physician: Peggy Canela M.D. CONSULTATION REPORT REASON FOR CONSULTATION Acute kidney injury. The patient was seen and examined. The chart was reviewed. HISTORY OF PRESENT ILLNESS This is a 51-year-old female with a past medical history of previous acute kidney injury episode who presented with a chief complaint of altered mental status. Apparently, the patient was found by her daughter unconscious with vomitus in her CPAP mask. She was brought to the emergency room and intubated and sedated. REVIEW OF SYSTEMS Unobtainable as the patient again is intubated and sedated. She was never on pressors and as per nursing, initially she had no urine output, but now she started making urine and has about 160 mL since she came into the ICU. She was given IV fluids with 2 amps of bicarb per liter. MEDICATIONS Zosyn 3.375 q.12, Lovenox 40 subcu q.24, clindamycin 600 mg IV daily, Rocephin 2 g IV daily, Levaquin, and Solu-Medrol 125 mg IV. ALLERGIES Not available as the patient is intubated and sedated. FAMILY HISTORY Not obtainable as the patient is intubated and sedated. SOCIAL HISTORY Not obtainable as the patient is intubated and sedated. PHYSICAL EXAMINATION VITAL SIGNS: Temperature is 97.7, saturating 93% on the vent, respirations 30, blood pressure 101/87. Tidal volume 550 and weight 126 kg. GENERAL APPEARANCE: This is a morbidly obese female, in no apparent distress, intubated. HEENT: Atraumatic and normocephalic. CHEST: Coarse breath sounds anteriorly. Symmetrical elevation of the chest wall. ABDOMEN: Obese, soft. Bowel sounds present in all 4 quadrants. EXTREMITIES: No edema, no cyanosis, no clubbing. NEUROLOGIC: Again, sedated. Has occasional spontaneous movements of arms Unit #: [id number] #: [id number] Patient: BEATRIZ OCASIO and legs. DIAGNOSTIC STUDIES IMAGING STUDIES: CT of head was read as normal. Chest x-ray which shows ET tube at 3.5 cm above the chelle. Right IJ catheter in the mid SVC. Bilateral space changes persists. No hemothorax. LABORATORY RESULTS: [place] UA, yellow, cloudy, 1.017, pH 5, leukocyte esterase 2, nitrites negative, protein trace, wbc's 0 to 2, rbc's 2 to 5, bacteria 3+. Sodium 136, potassium 4.4, chloride 109, bicarb 14, glucose 128, BUN 87, creatinine 8.5, calcium 7.2. PH 7.20, pCO2 of 29.3, pO2 of 87.8, bicarb 11.6. Oxygen saturation 94.7%, FiO2 100%, tidal volume 550, PEEP of 6. ASSESSMENT AND PLAN 1. Acute kidney injury, likely dense acute tubular necrosis. 2. Metabolic acidosis. 3. Proteinuria. 4. Respiratory failure, requiring mechanical ventilation. 5. Possible aspiration pneumonia. 6. Morbid obesity. From renal standpoint; continue IV fluids, but change to D5 with 3 amps of sodium bicarbonate at 150 mL/hr. Avoid nephrotoxic dose of medications, especially antibiotics as per pharmacy. Check renal ultrasound and fractional excretion of sodium, quantify proteinuria later when more stable. If no improvement by tomorrow morning in renal function, we will initiate renal replacement therapy. Strict I's and O's. The workup will be done as indicted by clinical course. Thank you very much for allowing me to participate in the care of this patient. Please do not hesitate to call if you have any questions or concerns. Dictated by... Damon Londono M.D. Gunjan TD: 02/13/2017 05:02 JOB #: [id number] CONSULTATION REPORT Page 1 of 1 X X CONSULTATION REPORT
--- NOTE | ~2017-02-11 | CR72 ---
[facility] A Service of [facility] RADIOLOGY TEXT RESULTS PATIENT: YINA OCASIO LOCATION: [facility] : [birth year] UNIT #: [id number] AGE: [address]: Emily Hernández MD SEX: F ORDER DR: [id number] [facility] [address] [facility] [place], [place] [address] [id number] MR#: [id number] Acc #: [id number] NAME: YINA OCASIO : 1965 SEX: F STUDY DATE/TIME: 02/11/2017 09:59 UNIT: [facility] ROOM: STUDY DESCRIPTION: CR Chest Single View Portable Attending Physician: Emily Hernández M.D. Ordering Physician: Emily Hernández M.D. Primary Care Physician: Peggy Canela M.D. MEDICAL IMAGING REPORT This report is preliminary unless electronic signature is present EXAM Chest portable 02/11/2017 0959 hours HISTORY 51-year-old woman with shortness of air, altered mental status today. History of cardiac ablation. COMPARISON 02/04/2006. FINDINGS Portable upright chest demonstrates low lung volumes. Heart size is mildly prominent likely exaggerated by the lower lung volumes. There is diffuse bilateral airspace change without definite effusion. IMPRESSION Low lung volumes with prominence of the cardiac silhouette and diffuse bilateral airspace changes. The findings favor the presence of edema over diffuse bilateral pneumonia. No definite effusion or pneumothorax. STAT * RESULT Dictated by... Yina Cook M.D. THIS IS AN ELECTRONICALLY VERIFIED REPORT Yina Cook M.D. at 02/11/2017 12:14 PM MYESHA/evens TD: 02/11/2017 10:28 JOB #: [id number] [facility] A Service of [facility] RADIOLOGY TEXT RESULTS PATIENT: YINA OCASIO LOCATION: [facility] : [birth year] UNIT #: [id number] AGE: [address]: Emily Hernández MD SEX: F ORDER DR: MEDICAL IMAGING REPORT Page 1 of 1 COPY
--- NOTE | ~2017-02-11 | A ---
[facility] Nutrition Therapy DATE: 02/12/17 Patient: BEATRIZ OCASIO Physician: MATT Address: [address] [place] [address] Room/Bed: [address], Zip: [place] [address] Admit Date: 02/11/17 Date of : [birth year] Height: 5 6 Weight: 285 129.5 NUTRITIONAL ASSESSMENT: REASON: NPO IN ICU ASSESSMENT + HIGH BMI DOCUMENTATION PT IS 51 Y.O. FEMALE ADMITTED FOR SOA, EMILEE PMH: NO RECENT H&P IN [facility]. PER CHART/PAST NOTES: HTN, HYPOTHYROIDISM, ASTHMA, COPD, ROSALINE, HX OF GASTRIC BYPASS Anthropometrics: 5'6" (PER RD OBSERVATION), WT: 280# (BEDSIDE) (127 KG), BMI: 45.2 Labs: K+:5.4, GLU: 128, BUN: 87, CREAT: 8.7, CA+:6.0, ALB: 2.9, M.5, PHOS: 7.6, GFR: 5.8 Meds: NACL, VERSED I/O & Bowel function: 2781/105 Skin Integrity: BLE GENERAL EDEMA; BUE GENERAL EDEMA Estimated Nutrition Needs: 8216-5401 KCAL (11-14 KCAL/KG BW) 88-147 G PRO (1.5-2.5 G PRO/KG IBW) FLUIDS CONSISTENT W/KCAL NEEDS OR MANAGE PER MD Assessment: CHART REVIEWED AND EVENTS NOTED. PT SEEN FOR NPO IN ICU ASSESSMENT. PT INTUBATED AND SEDATED AT TIME OF VISIT. NO CURRENT PLANS IN PLACE FOR ALTERNATIVE NUTRITION SUPPORT AT THIS TIME. NO FAMILY IN ROOM. RD TO FOLLOW AND MAKE RECOMMENDATIONS. Dx: INADEQUATE PROTEIN-ENERGY INTAKE R/T CURRENT DIAGNOSIS, VENT DEPENDENCE AEB NPO STATUS. -OBESITY CLASS III R/T LIFESTYLE AEB BMI OF 45.2. Intervention: 1. NPO Monitoring, Evaluation and Goals: 1. ENTERAL NUTRITION; PROVIDE >80% ESTIMATED NUTRIENT NEEDS AT GOAL 2. WEIGHTS; PROMOTE GRADUAL WEIGHT LOSS TOWARDS HEALTHY BMI 3. LABS; LYTES 4. GI; PROMOTE REGULAR GI FUNCTION MONITOR: -PLANS FOR SUPPORT [facility] Nutrition Therapy DATE: 02/12/17 Patient: BEATRIZ OCASIO Physician: MATT Address: [address] [place] [address] Room/Bed: [address], Zip: [place] [address] Admit Date: 02/11/17 Date of : [birth year] Height: 5 6 Weight: 285 129.5 -WEIGHTS -EXTUBATION? -LABS Recommendations: 1. ONCE MEDICALLY FEASIBLE AND PT EXTUBATED, ADVANCE DIET PER TALK SHOW HOST + CC+HH TO PROMOTE GRADUAL WEIGHT LOSS TOWARDS HEALTHY BMI (19.0-25.0) OR +/-10%IBW 2. IF PT REMAINS INTUBATED FOR >24 HOURS, CONSIDER PLACING DHT AND BEGIN ALTERNATIVE NUTRITION SUPPORT OF NEPRO @ 20 ML/HR, ADVANCE 10 ML q 6 HOURS TO GOAL RATE OF 40 ML/HR + SUGAR-FREE PROSTAT TID -PROVIDES 2028 KCAL, 123 G PRO, 701 ML FREE H20 ADD FREE H20 FLUSHES PER MD 3. ONCE PT'S ELECTROLYTES WITHIN NORMAL RANGE, RECOMMEND ENTERAL NUTRITION SUPPORT OF VITAL HIGH PROTEIN @ 20 ML/HR, ADVANCE 10 ML q 6 HOURS TO GOAL RATE OF 70 ML/HR -PROVIDES 1680 KCAL, 147 G PRO, 1411 ML FREE H20 ADD FREE H20 FLUSHES PER RD WILL F/U PER PROTOCOL PT IS SEVERELY COMPROMISED Respectfully, FINA BUTT MS, RD, LD Food and Nutritional Services [facility] cc: client file
--- NOTE | ~2017-02-11 | CR72 ---
[facility] A Service of [facility] RADIOLOGY TEXT RESULTS PATIENT: BEATRIZ OCASIO LOCATION: [place] [address] : [birth year] UNIT #: [id number] AGE: [address]: Maximino Bernal MD SEX: F ORDER DR: [id number] [facility] [address] [facility]. [place], [place] [address] [id number] I MR#: [id number] Acc #: [id number] NAME: BEATRIZ OCASIO. : 1965 SEX: F STUDY DATE/TIME: 02/12/2017 5:58 UNIT: [facility] ROOM: [facility] STUDY DESCRIPTION: CR Chest Single View Portable Attending Physician: Maximino Bernal M.D. Ordering Physician: Lev Pinto M.D. Primary Care Physician: Peggy Canela M.D. MEDICAL IMAGING REPORT This report is preliminary unless electronic signature is present EXAM Portable AP view of the chest HISTORY 02/12/2016 at 12:39 p.m., 12:01 p.m. and 09:59 a.m. INDICATIONS 51-year-old female with dyspnea for 2 days. Respiratory failure requiring mechanical ventilation, endotracheal tube. FINDINGS/IMPRESSION The chest is not significantly changed from yesterday at 12:39 p.m. Endotracheal tube terminates 2.8 cm above the chelle. Right internal jugular catheter tip terminates in lower SVC. There are stable opacities throughout the right lung with stable interstitial and alveolar opacities in the left mid-lung, extending to the left lower lobe. Findings most likely reflect pneumonia. Small right pleural effusion cannot be excluded. Dictated by... Reyes Dykes M.D. THIS IS AN ELECTRONICALLY VERIFIED REPORT Reyes Dykes M.D. at 02/17/2017 7:34 PM BLM/pcl TD: 02/12/2017 10:13 JOB #: [id number] MEDICAL IMAGING REPORT Page 1 of 1 COPY
--- NOTE | ~2017-02-11 | CR72 ---
[facility] A Service of [facility] & [facility] RADIOLOGY TEXT RESULTS PATIENT: BEATRIZ OCASIO LOCATION: [place] [address] : [birth year] UNIT #: [id number] AGE: [address]: Maximino Bernal MD SEX: F ORDER DR: [id number] [facility] [address] [facility]. [place], [place] [address] [id number] I MR#: [id number] Acc #: [id number] NAME: BEATRIZ OCASIO. : 1965 SEX: F STUDY DATE/TIME: 02/18/2017 5:55 UNIT: [facility] ROOM: [facility] STUDY DESCRIPTION: CR Chest Single View Portable Attending Physician: Maximino Bernal M.D. Ordering Physician: Lev Pinto M.D. Primary Care Physician: Peggy Canela M.D. MEDICAL IMAGING REPORT This report is preliminary unless electronic signature is present EXAM Portable chest one-view DATE OF STUDY: 02/18/17 COMPARISON 02/17/2017 CLINICAL HISTORY: Short of air and respiratory failure for 7 days. FINDINGS ET tube remains tip 2 cm above the chelle. Coarse bilateral right greater than left infiltrates remain unchanged since 02/17. No new abnormality is seen and there is no pneumothorax. Lung volumes remain low. IMPRESSION ET tube 2 cm above the chelle and left IJ and right IJ central lines remain in place as does a feeding tube. Dictated by... Cristiano Solo M.D. THIS IS AN ELECTRONICALLY VERIFIED REPORT Cristiano Solo M.D. at 02/18/2017 3:51 PM CLARENCE/nilda TD: 02/18/2017 10:52 JOB #: [id number] MEDICAL IMAGING REPORT Page 1 of 1 COPY
--- NOTE | ~2017-02-11 | CR72 ---
[facility] A Service of [facility] & [facility] RADIOLOGY TEXT RESULTS PATIENT: BEATRIZ OCASIO LOCATION: [place] [address] : [birth year] UNIT #: [id number] AGE: [address]: Maximino Bernal MD SEX: F ORDER DR: [id number] [facility] [address] [facility]. [place], [place] [address] [id number] I MR#: [id number] Acc #: [id number] NAME: BEATRIZ OCASIO. : 1965 SEX: F STUDY DATE/TIME: 02/17/2017 03:15 UNIT: [facility] ROOM: [facility] STUDY DESCRIPTION: CR Chest Single View Portable Attending Physician: Maximino Bernal M.D. Ordering Physician: Lev Pinto M.D. Primary Care Physician: Peggy Canela M.D. MEDICAL IMAGING REPORT This report is preliminary unless electronic signature is present EXAM Portable chest, 02/17 at 03:15. INDICATIONS Respiratory failure for 6 days. Shortness of air. ET tube placement. FINDINGS AP portable chest is compared with 02/16/2017. Tubes and lines are unchanged. Cardiomegaly is stable. Lung volumes remain low. Bilateral infiltrates, right greater than left, are stable in the short interval. No pneumothorax. Dictated by... Sukhi Field Jr., M.D. THIS IS AN ELECTRONICALLY VERIFIED REPORT Sukhi Field Jr., M.D. at 02/17/2017 9:26 PM DONALDO/troy TD: 02/17/2017 07:11 JOB #: [id number] MEDICAL IMAGING REPORT Page 1 of 1 COPY
--- NOTE | ~2017-02-11 | CR72 ---
[facility] A Service of [facility] RADIOLOGY TEXT RESULTS PATIENT: BEATRIZ OCASIO LOCATION: [place] [address] : [birth year] UNIT #: [id number] AGE: [address]: Maximino Bernal MD SEX: F ORDER DR: [id number] [place] [id number] [facility]. [place], [place] [address] [id number] I MR#: [id number] Acc #: [id number] NAME: BEATRIZ OCASIO. : 1965 SEX: F STUDY DATE/TIME: 02/12/2017 12:00 UNIT: [facility] ROOM: [facility] STUDY DESCRIPTION: CR Chest Single View Portable Attending Physician: Maximino Bernal M.D. Ordering Physician: Maximino Bernal M.D. Primary Care Physician: Peggy Canela M.D. MEDICAL IMAGING REPORT This report is preliminary unless electronic signature is present EXAM Portable AP view of the chest COMPARISON February 12, 2017 and February 11, 2017. HISTORY 51-year-old female post attempted shadowing catheter placement today. Feeding tube placement today. FINDINGS/IMPRESSION Right internal jugular catheter is stable with the tip terminating in the lower SVC. Endotracheal tube is adequately positioned and stable. Feeding tube is now noted with the tip in the expected location of the gastric body. No convincing evidence of pneumothorax. Lung volumes remain low. There may be slightly improved aeration in the right upper lobe but otherwise, stable diffuse confluent opacities in the right lung with slightly improved left perihilar opacities. This may reflect a combination of atelectasis or pneumonia. Small persistent right pleural effusion cannot be excluded. Dictated by... Reyes Dykes M.D. THIS IS AN ELECTRONICALLY VERIFIED REPORT Reyes Dykes M.D. at 02/17/2017 7:50 PM BLM/pcl TD: 02/12/2017 14:14 JOB #: [id number] [facility] A Service of [facility] RADIOLOGY TEXT RESULTS PATIENT: BEATRIZ OCASIO [id number] : [birth year] UNIT #: [id number] AGE: [address]: Maximino Bernal MD SEX: F ORDER DR: MEDICAL IMAGING REPORT Page 1 of 1 COPY
--- NOTE | ~2017-02-11 | FU ---
[facility] & [facility] Nutrition Therapy DATE: 02/18/17 Patient: BEATRIZ OCASIO Physician: MATT Address: [address] [place] [address] Room/Bed: [address], Zip: [place] [address] Admit Date: 02/11/17 Date of : [birth year] Height: 5 6 Weight: 163 74 NUTRITION MONITORING/FOLLOW-UP: Reason: Nutrition follow up Anthropometrics: Ht: 5'6" Adm wt: 127.3 kg BMI: 45.2 IBW: 59.1 kg Wt 02/18: 74 kg (bedscale wt incorrect based on the pt's previous wts) Labs: K+ 3.0 BUN 45 Creat 2.5 GFR 25.3 Meds: NaCl, nephrocaps, pepcid (IV) I&O's: 1059/1845, last BM 02/17 Skin: no changes noted Edema: trace- hips/ abdomen/ trunk/ BLE Estimated Nutrition Needs: 1637-5151 kcals (11-14 kcals/kg ABW) 106-130 grams protein (1.8-2.2 grams/kg IBW) Assessment: Chart reviewed, events noted. Pt was extubated this AM, and her respiratory status is currently being monitored with RTs in room. No orders for SEED CUTTER at this time d/t this. Pt remains with DHT with enteral nutrition on hold at this time. Pt was previously receiving Nepro at goal of 35 mL/hr + Prostat TID. Please see recommendations below. Pt is not appropriate for nutrition interview at this time, as RT is working with her. Dx: Obesity stage III RT poor lifestyle choices AEB BMI 45.2- ACTIVE Excessive energy intake RT enteral regimen AEB pt receiving 2244 kcals, which exceeds her kcal needs- RESOLVED New Dx: Inadequate oral intake RT recent extubation, respiratory status AEB NPO status. Intervention: 1. SEED CUTTER 2. Continue EN until pt consuming 50% of meals Monitoring, Evaluation and Goals: 1. Enteral nutrition; decrease to goal- MET/ IN PROGESS 2. Weight; promote gradual weight loss- UNABLE TO DETERMINE (INACCURATE WTS)/ IN PROGRESS [facility] Nutrition Therapy DATE: 02/18/17 Patient: BEATRIZ OCASIO Physician: MATT Address: [address] [place] [address] Room/Bed: [facility], Zip: [place] [address] Admit Date: 02/11/17 Date of : [birth year] Height: 5 6 Weight: 163 74 3. GI; promote regular GI function- IN PROGRESS 4. Improve labs; BUN, creat, K+ (NOT MET) NEW GOALS (IN ADDITION TO GOALS ABOVE IN PROGRESS) 1. Oral intake; SEED CUTTER evaluation, advance diet as tolerated 2. EN; provide >80% goal volume x 24 hrs Recommendations: 1. Once medically feasible, resume enteral nutrition with Nepro @ 35 mL/hr + 30 mL Prostat TID. 2. Recommend SEED CUTTER evaluation once medically feasible. Advanced diet per SEED CUTTER recommendations + heart healthy diet restriction. 3. Once the pt is advanced to PO diet and consuming at least 50% of meals, discontinue enteral nutrition. 4. Replete K+ to WNL PRN. Status: Pt is at moderate nutritional risk. RD will continue to follow. Respectfully, ZACHERY PATEL RD, LD Food and Nutritional Services [facility] cc: client file
[~2017-02-11 09:23] MED LIST: ATENOLOL PO; FERROUS SULFATE PO; NORVASC PO; PROZAC PO; WELLBUTRIN PO
[2017-02-11 10:04] LABS: POC - TROPONIN <0.05 ng/mL (<=0.05)
[2017-02-11 10:04] LABS: URINE SOURCE CLEAN CATCH
[2017-02-11 10:08] LABS: BASOPHIL% 0.3 % (0-2.5); EOSINOPHIL% 0.2 % (0.0-7.0); HEMATOCRIT 36.8 % (35.0-45.0); HEMOGLOBIN 11.5 gm/dL (12.0-16.0); LYMPHOCYTE# 0.4 X10e3 (1.0-3.5); LYMPHOCYTE% 10.8 % (17.0-45.0); MEAN CELL VOLUME 90.1 FL (83-96); MEAN CORPUSCULAR HEMOGLOBIN 28.3 PG (28-34); MEAN CORPUSCULAR HGB CONC 31.4 g/dL (30-36); MEAN PLATELET VOLUME 8.5 FL (6.5-11.5); MONOCYTE# 0.7 X10e3 (0-1.0); MONOCYTE% 18.2 % (3.0-12.0); NEUTROPHIL# 2.9 X10e3 (1.5-7.1); NEUTROPHIL% 70.5 % (40-75); PLATELET COUNT 343 X10e3 (140-420); RED BLOOD COUNT 4.08 X10e (3.90-5.30); RED CELL DISTRIBUTION WIDTH 13.8 % (11.0-15.5)
[2017-02-11 10:18] LABS: DIFF IND NO
[2017-02-11] MEDS ORDERED: CYMBALTA30 MG PO (10:19)
[2017-02-11] MEDS ORDERED: PRILOSEC PO (10:19)
[2017-02-11] MEDS ORDERED: FETZIMA1 EACH (10:22)
[2017-02-11] MEDS ORDERED: TRAMADOL HCL50 M1 PO (10:23)
[2017-02-11] MEDS ORDERED: WELLBUTRIN XL150 M1 PO (10:23)
[2017-02-11] MEDS ORDERED: MS CONTIN30 MG PO (10:24)
[2017-02-11] MEDS ORDERED: PREMARIN0.3 MG PO (10:24)
[2017-02-11] MEDS ORDERED: PROAIR HFA8.5 GM INH (10:24)
[2017-02-11] MEDS ORDERED: ATENOLOL PO (10:24)
[2017-02-11] MEDS ORDERED: SYNTHROID88 MCG PO (10:25)
[2017-02-11] MEDS ORDERED: ZANAFLEX PO (10:25)
[2017-02-11] MEDS ORDERED: AMITIZA24 MCG PO (10:26)
[2017-02-11] MEDS ORDERED: GABAPENTIN400 M2 PO (10:26)
[2017-02-11] MEDS ORDERED: PATIENT'S PHARMACY (10:26)
[2017-02-11] MEDS ORDERED: NORVASC10 MG PO (10:26)
[2017-02-11 10:27] LABS: URINE APPEARANCE CLOUDY; URINE BILIRUBIN NEG (NEG); URINE BLOOD TRACE (NEG); URINE COLOR DK YELLOW; URINE GLUCOSE NEG (NEG); URINE KETONE NEG (NEG); URINE LEUKOCYTE ESTERASE 2+ (NEG); URINE NITRATE NEG (NEG); URINE PROTEIN TRACE (NEG); URINE SPECIFIC GRAVITY 1.017 (1.003-1.035); URINE UROBILINOGEN 0.2 MG/DL (NEG)
[2017-02-11 10:29] LABS: ALBUMIN SERUM 2.9 g/dL (3.5-5.0); BILIRUBIN, DIRECT 0.2 mg/dL (0.0-0.2); BILIRUBIN,INDIRECT 0.5 mg/dL (0.0-0.9); BILIRUBIN,TOTAL 0.7 mg/dL (0.2-2.0); BUN/CREATININE RATIO 10.64; CALCIUM SERUM 7.6 mg/dL (8.4-10.2); CREATININE SERUM 7.7 mg/dL (0.6-1.4); GLOM FILT RATE Estimated 6.5 mL/min (>60); POTASSIUM 5.2 mmol/L (3.5-5.1); PROTEIN TOTAL SERUM 5.8 g/dL (6.0-8.3)
[2017-02-11 10:31] LABS: CULTURE INDICATED? YES; URINE BACTERIA AUWI 3+ (NEGATIVE); URINE SQUAMOUS EPITHELIAL CELL MOD /[HPF]
[2017-02-11 10:57] LABS: AMPHETAMINE NEG (NEG); BARBITURATES NEG (NEG); BENZODIAZEPINES NEG (NEG); COCAINE NEG (NEG); MARIJUANA NEG (NEG); OPIATES POS (NEG); TRICYCLIC ANTIDEPRESSANTS NEG (NEG); U METHADONE NEG (NEG)
[2017-02-11 10:59] LABS: PROTHROMBIN TIME (PATIENT) 10.5 SECONDS (10.0-11.7)
[2017-02-11 11:18] LABS: U HYALINE CASTS AUWI 0-2 /[LPF]
[2017-02-11 11:19] LABS: URINE AMORPHOUS SEDIMENT AMORP URATES; URINE MUCUS PRESENT
[2017-02-11 11:20] LABS: URBCS1 AUWI 0-2 /[HPF] (0-2)
[2017-02-11 12:18] LABS: POC - TROPONIN <0.05 ng/mL (<=0.05)
[2017-02-11 13:55] LABS: ARTERIAL BLOOD GAS PCO2 29.3 mmHg (35.0-45.0); ARTERIAL BLOOD GAS PO2 87.8 mmHg (80.0-100); ARTERIAL BLOOD GAS pH 7.207 (7.350-7.450)
[2017-02-11 13:56] LABS: ARTERIAL BLD GAS O2 SATURATION 94.7 % (90.0-100.0); ARTERIAL BLOOD GAS ART SITE RIGHT BRACHIAL; ARTERIAL BLOOD GAS CARBOXY HB 0.1 %sat (0.0-9.0); ARTERIAL BLOOD GAS DELIVERY VENT; ARTERIAL BLOOD GAS HCO3 11.6 mmol/L; ARTERIAL BLOOD GAS MET HB 1.9 %sat (0.0-2.0); ARTERIAL BLOOD GAS VENT MODE A/C; ARTERIAL DRAW? YES
[2017-02-11 14:46] LABS: BUN/CREATININE RATIO 10.23; CALCIUM SERUM 7.2 mg/dL (8.4-10.2); CREATININE SERUM 8.5 mg/dL (0.6-1.4); GLOM FILT RATE Estimated 5.8 mL/min (>60); POTASSIUM 4.4 mmol/L (3.5-5.1)
[2017-02-11 18:56] LABS: ARTERIAL BLD GAS O2 SATURATION 94.9 % (90.0-100.0); ARTERIAL BLOOD GAS ALLEN TEST NORMAL; ARTERIAL BLOOD GAS ART SITE LEFT RADIAL; ARTERIAL BLOOD GAS DELIVERY VENT; ARTERIAL BLOOD GAS HCO3 15.1 mmol/L; ARTERIAL BLOOD GAS MET HB 1.6 %sat (0.0-2.0); ARTERIAL BLOOD GAS PCO2 33.1 mmHg (35.0-45.0); ARTERIAL BLOOD GAS PO2 83.6 mmHg (80.0-100); ARTERIAL BLOOD GAS VENT MODE AC; ARTERIAL BLOOD GAS pH 7.268 (7.350-7.450); ARTERIAL DRAW? YES
[2017-02-12 06:14] LABS: CREATININE,RANDOM URINE 260 mg/dL; SODIUM URINE RANDOM 28 mmol/L
[2017-02-12 06:21] LABS: TOTAL PROTEIN,RANDOM URINE 247 mg/dl (<10)
[2017-02-12 07:50] LABS: BASOPHIL% 0.1 % (0-2.5); EOSINOPHIL% 0.1 % (0.0-7.0); HEMATOCRIT 33.2 % (35.0-45.0); HEMOGLOBIN 10.6 gm/dL (12.0-16.0); LYMPHOCYTE# 0.5 X10e3 (1.0-3.5); LYMPHOCYTE% 3.6 % (17.0-45.0); MEAN CELL VOLUME 87.7 FL (83-96); MEAN CORPUSCULAR HEMOGLOBIN 27.9 PG (28-34); MEAN CORPUSCULAR HGB CONC 31.8 g/dL (30-36); MEAN PLATELET VOLUME 8.5 FL (6.5-11.5); MONOCYTE# 1.1 X10e3 (0-1.0); MONOCYTE% 7.5 % (3.0-12.0); NEUTROPHIL# 13.4 X10e3 (1.5-7.1); NEUTROPHIL% 88.7 % (40-75); PLATELET COUNT 288 X10e3 (140-420); RED BLOOD COUNT 3.79 X10e (3.90-5.30)
[2017-02-12 07:51] LABS: DIFF IND YES; WHITE BLOOD COUNT 15.1 X10e3 (4.0-10.5)
[2017-02-12 08:20] LABS: CREATININE SERUM 7.7 mg/dL (0.6-1.4); GLOM FILT RATE Estimated 6.5 mL/min (>60); MAGNESIUM 1.5 mg/dL (1.6-3.0); PHOSPHOROUS 7.6 mg/dL (2.5-4.6); POTASSIUM 5.4 mmol/L (3.5-5.1)
[2017-02-12 08:22] LABS: BUN/CREATININE RATIO 13.37
[2017-02-12 08:24] LABS: ARTERIAL BLD GAS O2 SATURATION 94.4 % (90.0-100.0); ARTERIAL BLOOD GAS ALLEN TEST NORMAL; ARTERIAL BLOOD GAS ART SITE RIGHT RADIAL; ARTERIAL BLOOD GAS HCO3 20.5 mmol/L; ARTERIAL BLOOD GAS MET HB 0.5 %sat (0.0-2.0); ARTERIAL BLOOD GAS PCO2 37.4 mmHg (35.0-45.0); ARTERIAL BLOOD GAS PO2 77.9 mmHg (80.0-100); ARTERIAL BLOOD GAS pH 7.348 (7.350-7.450); ARTERIAL DRAW? YES
[2017-02-12 08:25] LABS: ARTERIAL BLOOD GAS DELIVERY VENT; ARTERIAL BLOOD GAS VENT MODE A/C
[2017-02-12 09:57] LABS: VACUOLIZATION SL
[2017-02-12 09:58] LABS: PLATELET ESTIMATE NORMAL (NORMAL); RBC NORMAL YES
[2017-02-12 09:59] LABS: ANISOCYTOSIS SL
[2017-02-13 04:03] LABS: ARTERIAL BLOOD GAS PCO2 40.7 mmHg (35.0-45.0); ARTERIAL BLOOD GAS pH 7.479 (7.350-7.450)
[2017-02-13 04:04] LABS: ARTERIAL BLD GAS O2 SATURATION 97.9 % (90.0-100.0); ARTERIAL BLOOD GAS ALLEN TEST NORMAL; ARTERIAL BLOOD GAS ART SITE RIGHT RADIAL; ARTERIAL BLOOD GAS DELIVERY VENT; ARTERIAL BLOOD GAS HCO3 30.2 mmol/L; ARTERIAL BLOOD GAS MET HB 1.6 %sat (0.0-2.0); ARTERIAL BLOOD GAS VENT MODE AC; ARTERIAL DRAW? YES
[2017-02-13 04:30] LABS: BASOPHIL% 0.1 % (0-2.5); HEMOGLOBIN 9.4 gm/dL (12.0-16.0); LYMPHOCYTE# 0.3 X10e3 (1.0-3.5); LYMPHOCYTE% 1.8 % (17.0-45.0); MEAN CELL VOLUME 86.2 FL (83-96); MEAN CORPUSCULAR HGB CONC 32.5 g/dL (30-36); MEAN PLATELET VOLUME 8.1 FL (6.5-11.5); MONOCYTE# 0.9 X10e3 (0-1.0); MONOCYTE% 5.1 % (3.0-12.0); NEUTROPHIL# 16.4 X10e3 (1.5-7.1); PLATELET COUNT 210 X10e3 (140-420); RED BLOOD COUNT 3.36 X10e (3.90-5.30); RED CELL DISTRIBUTION WIDTH 13.7 % (11.0-15.5); WHITE BLOOD COUNT 17.6 X10e3 (4.0-10.5)
[2017-02-13 04:31] LABS: DIFF IND NO
[2017-02-13 05:02] LABS: BUN/CREATININE RATIO 12.1; CALCIUM SERUM 7.4 mg/dL (8.4-10.2); CREATININE SERUM 3.8 mg/dL (0.6-1.4); GLOM FILT RATE Estimated 15.3 mL/min (>60); MAGNESIUM 1.7 mg/dL (1.6-3.0); PHOSPHOROUS 4.8 mg/dL (2.5-4.6); POTASSIUM 3.7 mmol/L (3.5-5.1)
[2017-02-14 06:24] LABS: BUN/CREATININE RATIO 14.63; CREATININE SERUM 4.1 mg/dL (0.6-1.4); GLOM FILT RATE Estimated 13.9 mL/min (>60); MAGNESIUM 1.7 mg/dL (1.6-3.0); PHOSPHOROUS 3.9 mg/dL (2.5-4.6)
[2017-02-14 06:26] LABS: BASOPHIL% 0.1 % (0-2.5); LYMPHOCYTE# 0.7 X10e3 (1.0-3.5); LYMPHOCYTE% 3.3 % (17.0-45.0); MEAN CORPUSCULAR HEMOGLOBIN 27.6 PG (28-34); MEAN CORPUSCULAR HGB CONC 32.1 g/dL (30-36); MEAN PLATELET VOLUME 8.5 FL (6.5-11.5); MONOCYTE# 1.1 X10e3 (0-1.0); NEUTROPHIL# 19.3 X10e3 (1.5-7.1); NEUTROPHIL% 91.6 % (40-75); PLATELET COUNT 180 X10e3 (140-420); RED BLOOD COUNT 3.26 X10e (3.90-5.30); RED CELL DISTRIBUTION WIDTH 13.3 % (11.0-15.5)
[2017-02-14 06:37] LABS: DIFF IND NO
[2017-02-14 15:50] LABS: ARTERIAL BLOOD GAS HCO3 36.7 mmol/L; ARTERIAL BLOOD GAS PCO2 44.4 mmHg (35.0-45.0); ARTERIAL BLOOD GAS PO2 56.1 mmHg (80.0-100); ARTERIAL BLOOD GAS pH 7.526 (7.350-7.450)
[2017-02-14 15:51] LABS: ARTERIAL BLD GAS O2 SATURATION 88.5 % (90.0-100.0); ARTERIAL BLOOD GAS ALLEN TEST NORMAL; ARTERIAL BLOOD GAS ART SITE LEFT RADIAL; ARTERIAL BLOOD GAS CARBOXY HB 0.4 %sat (0.0-9.0); ARTERIAL BLOOD GAS DELIVERY VENT; ARTERIAL BLOOD GAS MET HB 1.6 %sat (0.0-2.0); ARTERIAL BLOOD GAS VENT MODE A/C; ARTERIAL DRAW? YES
[2017-02-15 04:24] LABS: ARTERIAL BLD GAS O2 SATURATION 89.6 % (90.0-100.0); ARTERIAL BLOOD GAS ALLEN TEST NORMAL; ARTERIAL BLOOD GAS ART SITE RIGHT RADIAL; ARTERIAL BLOOD GAS CARBOXY HB 0.4 %sat (0.0-9.0); ARTERIAL BLOOD GAS DELIVERY VENT; ARTERIAL BLOOD GAS HCO3 36.6 mmol/L; ARTERIAL BLOOD GAS MET HB 1.2 %sat (0.0-2.0); ARTERIAL BLOOD GAS PCO2 45.8 mmHg (35.0-45.0); ARTERIAL BLOOD GAS PO2 55.1 mmHg (80.0-100); ARTERIAL BLOOD GAS VENT MODE AC; ARTERIAL BLOOD GAS pH 7.511 (7.350-7.450); ARTERIAL DRAW? YES
[2017-02-15 05:44] LABS: BASOPHIL% 0.1 % (0-2.5); EOSINOPHIL% 0.2 % (0.0-7.0); HEMATOCRIT 30.1 % (35.0-45.0); HEMOGLOBIN 9.5 gm/dL (12.0-16.0); LYMPHOCYTE# 1.2 X10e3 (1.0-3.5); LYMPHOCYTE% 6.5 % (17.0-45.0); MEAN CELL VOLUME 87.3 FL (83-96); MEAN CORPUSCULAR HEMOGLOBIN 27.7 PG (28-34); MEAN CORPUSCULAR HGB CONC 31.7 g/dL (30-36); MEAN PLATELET VOLUME 8.3 FL (6.5-11.5); MONOCYTE# 1.9 X10e3 (0-1.0); MONOCYTE% 10.4 % (3.0-12.0); NEUTROPHIL# 15.1 X10e3 (1.5-7.1); NEUTROPHIL% 82.8 % (40-75); PLATELET COUNT 166 X10e3 (140-420); RED BLOOD COUNT 3.44 X10e (3.90-5.30); RED CELL DISTRIBUTION WIDTH 13.5 % (11.0-15.5); WHITE BLOOD COUNT 18.2 X10e3 (4.0-10.5)
[2017-02-15 05:47] LABS: DIFF IND YES
[2017-02-15 06:11] LABS: BUN/CREATININE RATIO 12.3; CALCIUM SERUM 7.4 mg/dL (8.4-10.2); CREATININE SERUM 2.6 mg/dL (0.6-1.4); GLOM FILT RATE Estimated 24.1 mL/min (>60); PHOSPHOROUS 2.8 mg/dL (2.5-4.6); POTASSIUM 3.5 mmol/L (3.5-5.1)
[2017-02-15 06:34] LABS: ANISOCYTOSIS SL; HYPOCHROMIA SL; PLATELET ESTIMATE NORMAL (NORMAL)
[2017-02-16 04:00] LABS: ARTERIAL BLOOD GAS HCO3 35.7 mmol/L; ARTERIAL BLOOD GAS PCO2 49.4 mmHg (35.0-45.0); ARTERIAL BLOOD GAS PO2 96.4 mmHg (80.0-100); ARTERIAL BLOOD GAS pH 7.468 (7.350-7.450)
[2017-02-16 04:01] LABS: ARTERIAL BLD GAS O2 SATURATION 97.2 % (90.0-100.0); ARTERIAL BLOOD GAS ALLEN TEST NORMAL; ARTERIAL BLOOD GAS ART SITE RIGHT RADIAL; ARTERIAL BLOOD GAS CARBOXY HB 0.3 %sat (0.0-9.0); ARTERIAL BLOOD GAS DELIVERY VENT; ARTERIAL BLOOD GAS VENT MODE AC; ARTERIAL DRAW? YES
[2017-02-16 05:22] LABS: EOSINOPHIL# 0.1 X10e3 (0-0.7); EOSINOPHIL% 0.7 % (0.0-7.0); HEMATOCRIT 28.6 % (35.0-45.0); HEMOGLOBIN 9.1 gm/dL (12.0-16.0); LYMPHOCYTE# 1.1 X10e3 (1.0-3.5); LYMPHOCYTE% 6.6 % (17.0-45.0); MEAN CELL VOLUME 87.2 FL (83-96); MEAN CORPUSCULAR HEMOGLOBIN 27.7 PG (28-34); MEAN CORPUSCULAR HGB CONC 31.8 g/dL (30-36); MEAN PLATELET VOLUME 8.5 FL (6.5-11.5); MONOCYTE# 1.7 X10e3 (0-1.0); MONOCYTE% 9.8 % (3.0-12.0); NEUTROPHIL# 14.3 X10e3 (1.5-7.1); NEUTROPHIL% 82.9 % (40-75); PLATELET COUNT 158 X10e3 (140-420); RED BLOOD COUNT 3.29 X10e (3.90-5.30); RED CELL DISTRIBUTION WIDTH 13.6 % (11.0-15.5); WHITE BLOOD COUNT 17.3 X10e3 (4.0-10.5)
[2017-02-16 05:23] LABS: DIFF IND NO
[2017-02-16 06:30] LABS: BUN/CREATININE RATIO 16.33; CALCIUM SERUM 7.9 mg/dL (8.4-10.2); GLOM FILT RATE Estimated 20.3 mL/min (>60); MAGNESIUM 1.6 mg/dL (1.6-3.0); PHOSPHOROUS 4.2 mg/dL (2.5-4.6); POTASSIUM 3.4 mmol/L (3.5-5.1)
[2017-02-17 04:16] LABS: ARTERIAL BLOOD GAS PCO2 42.8 mmHg (35.0-45.0); ARTERIAL BLOOD GAS pH 7.505 (7.350-7.450)
[2017-02-17 04:17] LABS: ARTERIAL BLD GAS O2 SATURATION 95.1 % (90.0-100.0); ARTERIAL BLOOD GAS ALLEN TEST NORMAL; ARTERIAL BLOOD GAS ART SITE RIGHT RADIAL; ARTERIAL BLOOD GAS CARBOXY HB 0.1 %sat (0.0-9.0); ARTERIAL BLOOD GAS DELIVERY VENT; ARTERIAL BLOOD GAS HCO3 33.7 mmol/L; ARTERIAL BLOOD GAS MET HB 1.5 %sat (0.0-2.0); ARTERIAL BLOOD GAS VENT MODE AC; ARTERIAL DRAW? YES
[2017-02-17 05:36] LABS: BASOPHIL% 0.1 % (0-2.5); EOSINOPHIL# 0.2 X10e3 (0-0.7); HEMOGLOBIN 8.4 gm/dL (12.0-16.0); LYMPHOCYTE# 1.4 X10e3 (1.0-3.5); LYMPHOCYTE% 6.9 % (17.0-45.0); MEAN CELL VOLUME 87.5 FL (83-96); MEAN CORPUSCULAR HEMOGLOBIN 27.3 PG (28-34); MEAN CORPUSCULAR HGB CONC 31.2 g/dL (30-36); MEAN PLATELET VOLUME 8.4 FL (6.5-11.5); MONOCYTE# 1.8 X10e3 (0-1.0); MONOCYTE% 8.7 % (3.0-12.0); NEUTROPHIL# 17.2 X10e3 (1.5-7.1); NEUTROPHIL% 83.3 % (40-75); PLATELET COUNT 172 X10e3 (140-420); RED BLOOD COUNT 3.08 X10e (3.90-5.30); RED CELL DISTRIBUTION WIDTH 13.5 % (11.0-15.5); WHITE BLOOD COUNT 20.6 X10e3 (4.0-10.5)
[2017-02-17 05:41] LABS: DIFF IND NO
[2017-02-17 07:14] LABS: BUN/CREATININE RATIO 15.21; CREATININE SERUM 2.3 mg/dL (0.6-1.4); MAGNESIUM 1.8 mg/dL (1.6-3.0); PHOSPHOROUS 3.2 mg/dL (2.5-4.6); POTASSIUM 3.3 mmol/L (3.5-5.1)
[2017-02-17 11:50] LABS: ARTERIAL BLD GAS O2 SATURATION 97.1 % (90.0-100.0); ARTERIAL BLOOD GAS ALLEN TEST NORMAL; ARTERIAL BLOOD GAS ART SITE RIGHT RADIAL; ARTERIAL BLOOD GAS DELIVERY VENT; ARTERIAL BLOOD GAS HCO3 34.6 mmol/L; ARTERIAL BLOOD GAS MET HB 1.4 %sat (0.0-2.0); ARTERIAL BLOOD GAS PCO2 48.1 mmHg (35.0-45.0); ARTERIAL BLOOD GAS PO2 94.8 mmHg (80.0-100); ARTERIAL BLOOD GAS VENT MODE CPAP; ARTERIAL BLOOD GAS pH 7.465 (7.350-7.450); ARTERIAL DRAW? YES
[2017-02-18 06:33] LABS: BASOPHIL% 0.2 % (0-2.5); EOSINOPHIL# 0.4 X10e3 (0-0.7); EOSINOPHIL% 1.7 % (0.0-7.0); HEMATOCRIT 27.4 % (35.0-45.0); HEMOGLOBIN 8.6 gm/dL (12.0-16.0); LYMPHOCYTE# 1.5 X10e3 (1.0-3.5); LYMPHOCYTE% 6.9 % (17.0-45.0); MEAN CELL VOLUME 88.2 FL (83-96); MEAN CORPUSCULAR HEMOGLOBIN 27.6 PG (28-34); MEAN CORPUSCULAR HGB CONC 31.3 g/dL (30-36); MEAN PLATELET VOLUME 8.6 FL (6.5-11.5); MONOCYTE# 1.8 X10e3 (0-1.0); MONOCYTE% 8.1 % (3.0-12.0); NEUTROPHIL# 18.2 X10e3 (1.5-7.1); NEUTROPHIL% 83.1 % (40-75); PLATELET COUNT 228 X10e3 (140-420); WHITE BLOOD COUNT 21.9 X10e3 (4.0-10.5)
[2017-02-18 06:38] LABS: DIFF IND YES
[2017-02-18 06:55] LABS: CALCIUM SERUM 8.4 mg/dL (8.4-10.2); CREATININE SERUM 2.5 mg/dL (0.6-1.4); GLOM FILT RATE Estimated 25.3 mL/min (>60); MAGNESIUM 1.6 mg/dL (1.6-3.0)
[2017-02-18 07:48] LABS: PLATELET ESTIMATE NORMAL (NORMAL)
[2017-02-18 07:51] LABS: RBC NORMAL YES
[2017-02-18 08:29] LABS: ARTERIAL BLOOD GAS CARBOXY HB 0.1 %sat (0.0-9.0); ARTERIAL BLOOD GAS HCO3 35.6 mmol/L; ARTERIAL BLOOD GAS MET HB 1.4 %sat (0.0-2.0); ARTERIAL BLOOD GAS PCO2 48.1 mmHg (35.0-45.0); ARTERIAL BLOOD GAS pH 7.477 (7.350-7.450)
[2017-02-18 08:30] LABS: ARTERIAL BLOOD GAS ALLEN TEST NORMAL; ARTERIAL BLOOD GAS ART SITE RIGHT RADIAL; ARTERIAL BLOOD GAS DELIVERY VENT; ARTERIAL BLOOD GAS VENT MODE CPAP; ARTERIAL DRAW? YES
[2017-02-18 11:58] LABS: ARTERIAL BLD GAS O2 SATURATION 86.3 % (90.0-100.0); ARTERIAL BLOOD GAS ALLEN TEST NORMAL; ARTERIAL BLOOD GAS ART SITE RIGHT RADIAL; ARTERIAL BLOOD GAS CARBOXY HB 0.4 %sat (0.0-9.0); ARTERIAL BLOOD GAS HCO3 11.5 mmol/L; ARTERIAL BLOOD GAS MET HB 1.8 %sat (0.0-2.0); ARTERIAL BLOOD GAS PCO2 27.4 mmHg (35.0-45.0); ARTERIAL BLOOD GAS PO2 57.5 mmHg (80.0-100); ARTERIAL BLOOD GAS pH 7.231 (7.350-7.450); ARTERIAL DRAW? YES
[2017-02-18 12:41] LABS: ARTERIAL BLD GAS O2 SATURATION 92.6 % (90.0-100.0); ARTERIAL BLOOD GAS CARBOXY HB 0.2 %sat (0.0-9.0); ARTERIAL BLOOD GAS HCO3 34.4 mmol/L; ARTERIAL BLOOD GAS MET HB 1.4 %sat (0.0-2.0); ARTERIAL BLOOD GAS PCO2 43.1 mmHg (35.0-45.0)
[2017-02-18 12:43] LABS: ARTERIAL BLOOD GAS ART SITE RIGHT BRACHIAL; ARTERIAL BLOOD GAS DELIVERY VENTURI; ARTERIAL BLOOD GAS PO2 67.8 mmHg (80.0-100); ARTERIAL DRAW? YES
[2017-02-18 17:42] LABS: URINE APPEARANCE CLOUDY; URINE BILIRUBIN NEG (NEG); URINE BLOOD 2+ (NEG); URINE COLOR YELLOW; URINE GLUCOSE NEG (NEG); URINE KETONE NEG (NEG); URINE LEUKOCYTE ESTERASE TRACE (NEG); URINE NITRATE NEG (NEG); URINE PH 5.5 (5-8); URINE PROTEIN 2+ (NEG); URINE SPECIFIC GRAVITY 1.014 (1.003-1.035); URINE UROBILINOGEN 0.2 MG/DL (NEG)
[2017-02-18 17:46] LABS: CULTURE INDICATED? YES; URINE BACTERIA AUWI NEG (NEGATIVE); URINE SQUAMOUS EPITHELIAL CELL OCC /[HPF]
[2017-02-18 18:00] LABS: URINE YEAST PRESENT
[2017-02-19 05:57] LABS: BASOPHIL# 0.1 X10e3 (0-0.3); BASOPHIL% 0.2 % (0-2.5); EOSINOPHIL# 0.1 X10e3 (0-0.7); EOSINOPHIL% 0.2 % (0.0-7.0); HEMATOCRIT 27.8 % (35.0-45.0); HEMOGLOBIN 8.6 gm/dL (12.0-16.0); LYMPHOCYTE# 1.4 X10e3 (1.0-3.5); LYMPHOCYTE% 5.4 % (17.0-45.0); MEAN CELL VOLUME 87.8 FL (83-96); MEAN CORPUSCULAR HEMOGLOBIN 27.1 PG (28-34); MEAN CORPUSCULAR HGB CONC 30.9 g/dL (30-36); MEAN PLATELET VOLUME 8.2 FL (6.5-11.5); MONOCYTE# 1.6 X10e3 (0-1.0); MONOCYTE% 5.9 % (3.0-12.0); NEUTROPHIL# 23.5 X10e3 (1.5-7.1); NEUTROPHIL% 88.3 % (40-75); PLATELET COUNT 278 X10e3 (140-420); RED BLOOD COUNT 3.17 X10e (3.90-5.30); RED CELL DISTRIBUTION WIDTH 13.2 % (11.0-15.5); WHITE BLOOD COUNT 26.6 X10e3 (4.0-10.5)
[2017-02-19 05:58] LABS: DIFF IND NO
[2017-02-19 06:30] LABS: BUN/CREATININE RATIO 14.66; CALCIUM SERUM 7.4 mg/dL (8.4-10.2); CREATININE SERUM 1.5 mg/dL (0.6-1.4); GLOM FILT RATE Estimated 46.9 mL/min (>60); MAGNESIUM 1.5 mg/dL (1.6-3.0); POTASSIUM 3.7 mmol/L (3.5-5.1)
[2017-02-19 16:45] LABS: URINE CREATININE 124.1 mg/dL
[2017-02-19 16:45] LABS: URINE UREA NITROGEN 641 mg/dL
[2017-02-19 16:50] LABS: URINE 24 HOUR CREATININE CALC 1.3 G/24HR (0.7-2.0)
[2017-02-19 16:50] LABS: HOURS OF COLLECTION 24 HOURS; U UREA NITROGEN CALCULATION 7 GM/24HR (6-17); URINE TOTAL VOLUME 1125 mL
[2017-02-20 06:17] LABS: BASOPHIL% 0.2 % (0-2.5); EOSINOPHIL# 0.4 X10e3 (0-0.7); EOSINOPHIL% 1.7 % (0.0-7.0); HEMATOCRIT 26.9 % (35.0-45.0); HEMOGLOBIN 8.5 gm/dL (12.0-16.0); LYMPHOCYTE# 2.4 X10e3 (1.0-3.5); LYMPHOCYTE% 10.3 % (17.0-45.0); MEAN CELL VOLUME 87.2 FL (83-96); MEAN CORPUSCULAR HEMOGLOBIN 27.7 PG (28-34); MEAN CORPUSCULAR HGB CONC 31.8 g/dL (30-36); MEAN PLATELET VOLUME 7.9 FL (6.5-11.5); MONOCYTE# 1.7 X10e3 (0-1.0); MONOCYTE% 7.5 % (3.0-12.0); NEUTROPHIL# 18.3 X10e3 (1.5-7.1); NEUTROPHIL% 80.3 % (40-75); PLATELET COUNT 338 X10e3 (140-420); RED BLOOD COUNT 3.08 X10e (3.90-5.30); RED CELL DISTRIBUTION WIDTH 13.1 % (11.0-15.5); WHITE BLOOD COUNT 22.8 X10e3 (4.0-10.5)
[2017-02-20 06:20] LABS: DIFF IND NO
[2017-02-20 06:47] LABS: CALCIUM SERUM 8.2 mg/dL (8.4-10.2); GLOM FILT RATE Estimated 33.1 mL/min (>60); MAGNESIUM 1.5 mg/dL (1.6-3.0); POTASSIUM 3.5 mmol/L (3.5-5.1)
[2017-02-21 04:18] LABS: BASOPHIL# 0.1 X10e3 (0-0.3); BASOPHIL% 0.4 % (0-2.5); EOSINOPHIL# 0.3 X10e3 (0-0.7); EOSINOPHIL% 1.7 % (0.0-7.0); HEMATOCRIT 27.8 % (35.0-45.0); HEMOGLOBIN 8.7 gm/dL (12.0-16.0); LYMPHOCYTE# 1.6 X10e3 (1.0-3.5); LYMPHOCYTE% 8.5 % (17.0-45.0); MEAN CORPUSCULAR HEMOGLOBIN 27.7 PG (28-34); MEAN CORPUSCULAR HGB CONC 31.4 g/dL (30-36); MEAN PLATELET VOLUME 7.9 FL (6.5-11.5); MONOCYTE# 1.7 X10e3 (0-1.0); MONOCYTE% 8.7 % (3.0-12.0); NEUTROPHIL# 15.3 X10e3 (1.5-7.1); NEUTROPHIL% 80.7 % (40-75); PLATELET COUNT 444 X10e3 (140-420); RED CELL DISTRIBUTION WIDTH 13.2 % (11.0-15.5)
[2017-02-21 04:19] LABS: RED BLOOD COUNT 3.17 X10e (3.90-5.30)
[2017-02-21 04:20] LABS: DIFF IND NO
[2017-02-21 04:47] LABS: BUN/CREATININE RATIO 12.63; CALCIUM SERUM 8.2 mg/dL (8.4-10.2); CREATININE SERUM 1.9 mg/dL (0.6-1.4); GLOM FILT RATE Estimated 35.3 mL/min (>60); MAGNESIUM 1.5 mg/dL (1.6-3.0)
[2017-02-22 03:36] LABS: HEMATOCRIT 28.1 % (35.0-45.0); HEMOGLOBIN 8.9 gm/dL (12.0-16.0); MEAN CELL VOLUME 87.3 FL (83-96); MEAN CORPUSCULAR HEMOGLOBIN 27.8 PG (28-34); MEAN CORPUSCULAR HGB CONC 31.8 g/dL (30-36); MEAN PLATELET VOLUME 7.9 FL (6.5-11.5); RED BLOOD COUNT 3.22 X10e (3.90-5.30); RED CELL DISTRIBUTION WIDTH 13.1 % (11.0-15.5); WHITE BLOOD COUNT 17.9 X10e3 (4.0-10.5)
[2017-02-22 04:01] LABS: BUN/CREATININE RATIO 12.1; CALCIUM SERUM 8.6 mg/dL (8.4-10.2); CREATININE SERUM 1.9 mg/dL (0.6-1.4); GLOM FILT RATE Estimated 35.3 mL/min (>60)
[2017-02-22 22:42] LABS: BASOPHIL% 0.1 % (0-2.5); DIFF IND YES; HEMATOCRIT 29.5 % (35.0-45.0); HEMOGLOBIN 9.2 gm/dL (12.0-16.0); LYMPHOCYTE# 0.7 X10e3 (1.0-3.5); LYMPHOCYTE% 2.6 % (17.0-45.0); MEAN CELL VOLUME 87.4 FL (83-96); MEAN CORPUSCULAR HEMOGLOBIN 27.4 PG (28-34); MEAN CORPUSCULAR HGB CONC 31.4 g/dL (30-36); MEAN PLATELET VOLUME 7.7 FL (6.5-11.5); MONOCYTE# 1.1 X10e3 (0-1.0); MONOCYTE% 4.3 % (3.0-12.0); PLATELET COUNT 708 X10e3 (140-420); RED BLOOD COUNT 3.37 X10e (3.90-5.30); RED CELL DISTRIBUTION WIDTH 13.7 % (11.0-15.5); WHITE BLOOD COUNT 25.8 X10e3 (4.0-10.5)
[2017-02-22 23:01] LABS: BUN/CREATININE RATIO 14.73; CALCIUM SERUM 8.3 mg/dL (8.4-10.2); CREATININE SERUM 1.9 mg/dL (0.6-1.4); GLOM FILT RATE Estimated 35.3 mL/min (>60); MAGNESIUM 1.9 mg/dL (1.6-3.0); POTASSIUM 3.7 mmol/L (3.5-5.1)
[2017-02-22 23:03] LABS: HYPERSEGMENTED POLYS PRESENT; PLATELET ESTIMATE INCREASED (NORMAL); POLYCHROMASIA SL; SMUDGE CELLS 5 /100
[2017-02-23 02:00] LABS: HEMATOCRIT 28.6 % (35.0-45.0); MEAN CORPUSCULAR HEMOGLOBIN 27.6 PG (28-34); MEAN CORPUSCULAR HGB CONC 31.4 g/dL (30-36); MEAN PLATELET VOLUME 7.4 FL (6.5-11.5); RED BLOOD COUNT 3.25 X10e (3.90-5.30); RED CELL DISTRIBUTION WIDTH 13.6 % (11.0-15.5); WHITE BLOOD COUNT 25.3 X10e3 (4.0-10.5)
[2017-02-23 02:14] LABS: BUN/CREATININE RATIO 14.73; CALCIUM SERUM 8.2 mg/dL (8.4-10.2); CREATININE SERUM 1.9 mg/dL (0.6-1.4); GLOM FILT RATE Estimated 35.3 mL/min (>60); MAGNESIUM 1.8 mg/dL (1.6-3.0); POTASSIUM 3.9 mmol/L (3.5-5.1)
[2017-02-23 17:38] LABS: CK TOTAL 56 IU/L (26-140)
[2017-02-23 23:59] LABS: MB 1.8 ng/ml
[2017-02-24 04:07] LABS: HEMATOCRIT 27.6 % (35.0-45.0); HEMOGLOBIN 8.5 gm/dL (12.0-16.0); MEAN CELL VOLUME 87.8 FL (83-96); MEAN CORPUSCULAR HEMOGLOBIN 27.1 PG (28-34); MEAN CORPUSCULAR HGB CONC 30.9 g/dL (30-36); MEAN PLATELET VOLUME 7.3 FL (6.5-11.5); RED BLOOD COUNT 3.14 X10e (3.90-5.30); RED CELL DISTRIBUTION WIDTH 13.5 % (11.0-15.5); WHITE BLOOD COUNT 18.8 X10e3 (4.0-10.5)
[2017-02-24 04:27] LABS: ALBUMIN SERUM 2.7 g/dL (3.5-5.0); BILIRUBIN,TOTAL 0.6 mg/dL (0.2-2.0); BUN/CREATININE RATIO 12.63; CALCIUM SERUM 8.1 mg/dL (8.4-10.2); CREATININE SERUM 1.9 mg/dL (0.6-1.4); GLOM FILT RATE Estimated 35.3 mL/min (>60); POTASSIUM 3.5 mmol/L (3.5-5.1)
[2017-02-24 12:00] LABS: INR 1.1; PARTIAL THROMBOPLASTIN TIME 98.9 SECONDS (23.5-31.3); PROTHROMBIN TIME (PATIENT) 12.3 SECONDS (10.0-11.7)
[2017-02-25 03:25] LABS: HEMATOCRIT 27.4 % (35.0-45.0); HEMOGLOBIN 8.6 gm/dL (12.0-16.0); MEAN CELL VOLUME 88.2 FL (83-96); MEAN CORPUSCULAR HEMOGLOBIN 27.7 PG (28-34); MEAN CORPUSCULAR HGB CONC 31.4 g/dL (30-36); MEAN PLATELET VOLUME 7.3 FL (6.5-11.5); RED BLOOD COUNT 3.11 X10e (3.90-5.30); RED CELL DISTRIBUTION WIDTH 13.5 % (11.0-15.5); WHITE BLOOD COUNT 15.9 X10e3 (4.0-10.5)
[2017-02-25 03:35] LABS: INR 1.1
[2017-02-25 03:51] LABS: BUN/CREATININE RATIO 10.58; CALCIUM SERUM 8.3 mg/dL (8.4-10.2); CREATININE SERUM 1.7 mg/dL (0.6-1.4); GLOM FILT RATE Estimated 40.3 mL/min (>60); MAGNESIUM 1.5 mg/dL (1.6-3.0); POTASSIUM 3.5 mmol/L (3.5-5.1)
== END 2017-02-25 22:12 | DRG 870 ==
LOC: CED 09:23 → CEDOF 16:00 → CED 16:54 → CICCU3 17:33 → CEDOF 17:33 → CICCU3 02-12 05:59 → C4C 02-20 16:11
PROVIDERS: Emergency Medicine; Internal Medicine; Internal Medicine Nephrology; Nurse Practitioner
PROC: 0BH17EZ Insertion of Endotracheal Airway into Trachea, Via Natural or Artificial Opening (ICD-10-PCS; principal; 2017-02-11)
PROC: 5A1955Z Respiratory Ventilation, Greater than 96 Consecutive Hours (ICD-10-PCS; 2017-02-11)
PROC: 05HM33Z Insertion of Infusion Device into Right Internal Jugular Vein, Percutaneous Approach (ICD-10-PCS; 2017-02-11)
PROC: B543ZZA Ultrasonography of Right Jugular Veins, Guidance (ICD-10-PCS; 2017-02-11)
PROC: 5A1D60Z (ICD-10-PCS; 2017-02-12)
DX: A41.9 Sepsis, unspecified organism (principal); N17.0 Acute kidney failure with tubular necrosis; J69.0 Pneumonitis due to inhalation of food and vomit; R65.21 Severe sepsis with septic shock; E87.2 Acidosis; J96.02 Acute respiratory failure with hypercapnia; J96.01 Acute respiratory failure with hypoxia; G92 Toxic encephalopathy; F11.20 Opioid dependence, uncomplicated; J44.0 Chronic obstructive pulmonary disease with (acute) lower respiratory infection; F33.1 Major depressive disorder, recurrent, moderate; N39.0 Urinary tract infection, site not specified; J44.1 Chronic obstructive pulmonary disease with (acute) exacerbation; E44.1 Mild protein-calorie malnutrition; I82.441 Acute embolism and thrombosis of right tibial vein; Z68.42 Body mass index [BMI] 45.0-49.9, adult; F34.1 Dysthymic disorder; K21.9 Gastro-esophageal reflux disease without esophagitis; E03.9 Hypothyroidism, unspecified; G47.33 Obstructive sleep apnea (adult) (pediatric); G89.29 Other chronic pain; E87.5 Hyperkalemia; M06.9 Rheumatoid arthritis, unspecified; Z98.84 Bariatric surgery status; B96.20 Unspecified Escherichia coli [E. coli] as the cause of diseases classified elsewhere; R00.0 Tachycardia, unspecified; E87.6 Hypokalemia; E83.42 Hypomagnesemia; E66.01 Morbid (severe) obesity due to excess calories; E83.51 Hypocalcemia; R19.7 Diarrhea, unspecified; D50.9 Iron deficiency anemia, unspecified; N18.3 Chronic kidney disease, stage 3 (moderate)
CPT/HCPCS: 36415; 36600; 51702; 70450; 71010; 71020; 71250; 74000; 74230; 76770; 80048; 80053; 80076; 80202; 80307; 81003; 82270; 82308; 82330; 82550; 82553; 82570; 82728; 82803; 82947; 83540; 83605; 83630; 83735; 83880; 84100; 84156; 84300; 84484; 84540; 85025; 85027; 85610; 85730; 86705; 86707; 87040; 87070; 87086; 87088; 87186; 87205; 87340; 87350; 87493; 92526; 92610; 92611; 93005; 93970; 94002; 94003; 94640; 94660; 94760; 94761; 96374; 96375; 97110; 97116; 97163; 97166; 97530; 97535; 99285; C1750; G8978-GP; G8979-GP; G8987-GO; G8988-GO; G8996-GN; G8997-GN; G8998-GN; J0610; J0696; J1100; J1644; J1650; J1720; J1956; J2250; J2310; J2370; J2405; J2501; J2543; J2920; J2930; J2997; J3010; J3370; J3475; J7042; J7060; P9047; Q4081

== ENCOUNTER 2017-03-11 18:58 | Emergency (ER) | payer MEDICARE ==
[~2017-03-11 18:58] MED LIST changes: +AMITIZA24 MCG PO; +CYMBALTA30 MG PO; +FETZIMA1 EACH; +GABAPENTIN400 M2 PO; +MS CONTIN30 MG PO; +NORVASC10 MG PO; +PATIENT'S PHARMACY; +PREMARIN0.3 MG PO; +PRILOSEC PO; +PROAIR HFA8.5 GM INH; +SYNTHROID88 MCG PO; +TRAMADOL HCL50 M1 PO; +WELLBUTRIN XL150 M1 PO; +ZANAFLEX PO
== END 2017-03-11 20:36 | disposition home or self-care (01) ==
LOC: CED 18:58
DX: R79.1 Abnormal coagulation profile (principal); Z79.899 Other long term (current) drug therapy
CPT/HCPCS: 36415; 96372; 99283; J1650

== ENCOUNTER → 2017-03-22 | Outpatient (CLI) | payer MEDICARE ==
--- NOTE | ~2017-03-22 | US98 ---
[facility] A Service of [facility] & [facility] RADIOLOGY TEXT RESULTS PATIENT: BEATRIZ OCASIO LOCATION: [facility] : 69 UNIT #: [id number] AGE: [address]: PEGGY BIRMINGHAM MD SEX: F ORDER DR: [id number] [facility]. [place], [place] [address] [id number] O MR#: [id number] Acc #: [id number] NAME: BEATRIZ OCASIO : 1965 SEX: F STUDY DATE/TIME: 03/22/2017 11:09 UNIT: [facility] ROOM: STUDY DESCRIPTION: US Pelvic Non-OB Complete Attending Physician: Peggy Birmingham M.D. Referring Physician: Peggy Birmingham M.D. Ordering Physician: Peggy Birmingham M.D. Primary Care Physician: Peggy Birmingham M.D. MEDICAL IMAGING REPORT This report is preliminary unless electronic signature is present EXAM Transabdominal and transvaginal pelvic ultrasound. DATE: 01/20/2017 HISTORY Patient states hospitalization 2 weeks ago with ovarian mass and diffuse abdominal pain. Mass on previous imaging. COMPARISON There is no recent CT or MRI abdomen and pelvis or pelvic ultrasound at this institution for comparison. The location of the patient's presumed previous outside imaging study is unknown and not provided on the submitted clinical history. COMPARISON CT chest 02/23/2017 FINDINGS Transabdominal imaging was performed for generalized visualization of the pelvic structures while transvaginal images performed for more detailed evaluation of the adnexa. Uterus is not visualized consist with patient's stated history of hysterectomy. Pelvic structures are largely obscured by bowel gas, particularly in the transabdominal portion of the examination. The right ovary measures 4.8 cm x 2.5 cm x 4.2 cm. The right ovary contains a complex cystic lesion with thick internal septations, measuring 4.8 cm x 2.5 cm x 3.6 cm. The internal septated components demonstrates no perceptible vascularity on color Doppler imaging. There are some eccentric more solid nodular components along the nondependent margin of this lesion, as well. Color and spectral Doppler flow is documented [facility] A Service of [facility] & [facility] RADIOLOGY TEXT RESULTS PATIENT: BEATRIZ OCASIO LOCATION: [facility] : 69 UNIT #: [id number] AGE: [address]: PEGGY BIRMINGHAM MD SEX: F ORDER DR: within the right ovary. The left ovary measures 2.9 cm x 1.5 cm x 1.5 cm without cystic or solid lesion and demonstrates normal color and spectral Doppler flow. No pelvic free fluid is identified. IMPRESSION Complex cystic right ovarian mass lesion measuring up to 4.0 cm. Both benign etiologies (serous cystadenoma) and malignant etiologies (serous cystadenocarcinoma) remain within the differential diagnosis based upon imaging studies alone. Gynecologic consultation recommended. Correlation with patient's outside imaging studies recommended. The location of these outside studies has not been provided on the patient's history on today's examination. If the lesion has increased in size, consider correlation with laparoscopic evaluation. Dictated by... Aleshia Vieyra M.D. THIS IS AN ELECTRONICALLY VERIFIED REPORT Aleshia Vieyra M.D. at 03/23/2017 11:57 AM Tatyana TD: 03/23/2017 01:22 JOB #: [id number] MEDICAL IMAGING REPORT Page 1 of 1 COPY
== END | disposition home or self-care (01) ==
LOC: CWCC 10:51
DX: N83.9 Noninflammatory disorder of ovary, fallopian tube and broad ligament, unspecified (principal); R10.2 Pelvic and perineal pain
CPT/HCPCS: 76830; 76856